=== PATIENT | female | born 1970 | race Caucasian/White ===

== ENCOUNTER 2020-09-19 06:47 | Outpatient (REF) | payer OTHER, SELFPAY | END 2020-09-19 06:48 | disposition home or self-care (01) | LOC: HO.LAB 06:47 | PROVIDERS: Visit Provider Internal Medicine | DX: Z20.828 Contact with and (suspected) exposure to other viral communicable diseases (principal) | CPT/HCPCS: C9803; U0003 ==

== ENCOUNTER 2020-10-04 07:21 | Outpatient (REF) | payer OTHER, SELFPAY | END 2020-10-04 07:22 | disposition home or self-care (01) | LOC: HO.LAB 07:21 | PROVIDERS: PCP Internal Medicine; Visit Provider Internal Medicine | DX: Z20.828 Contact with and (suspected) exposure to other viral communicable diseases (principal) | CPT/HCPCS: C9803; U0003 ==

== ENCOUNTER 2020-10-15 06:47 | Outpatient (REF) | payer OTHER, SELFPAY | END 2020-10-15 06:48 | disposition home or self-care (01) | LOC: HO.LAB 06:47 | PROVIDERS: PCP Nurse Practitioner Family; Visit Provider Internal Medicine | DX: Z20.828 Contact with and (suspected) exposure to other viral communicable diseases (principal) | CPT/HCPCS: C9803; U0003 ==

== ENCOUNTER → 2020-12-25 10:52 | Outpatient (BNVA) | payer OTHER, SELFPAY | PROVIDERS: PCP Nurse Practitioner Family; Visit Provider Obstetrics & Gynecology ==

== ENCOUNTER 2021-01-08 08:49 | Outpatient (REF) | payer OTHER, SELFPAY ==
[2021-01-19 09:23] LABS: HPV 16 RNA NOT DETECTED; HPV mRNA E6/E7 rflx Detected
== END 2021-01-08 08:50 | disposition home or self-care (01) ==
LOC: HO.LAB 08:49
PROVIDERS: PCP Nurse Practitioner Family; Visit Provider Obstetrics & Gynecology
DX: Z01.419 Encounter for gynecological examination (general) (routine) without abnormal findings (principal); B20 Human immunodeficiency virus [HIV] disease; Z79.899 Other long term (current) drug therapy
CPT/HCPCS: 36415; 87624; 87625; 88141; 88142

== ENCOUNTER 2021-01-22 10:24 | Outpatient (REF) | payer OTHER, SELFPAY ==
--- NOTE | ~2021-01-22 | MM_ITS ---
EXAMINATION: MM SCREENING DIGITAL BREAST TOMOSYNTHESIS, BILATERAL CLINICAL INFORMATION: Screening. Asymptomatic. The lifetime risk of breast cancer based on the Tyrer-Cuzick Model is 14.4%. COMPARISON: Mammography: November 01, 2019 and studies dating back to March 19, 2014 TECHNIQUE: Digital breast tomosynthesis is performed in both the craniocaudal and mediolateral oblique views along with computer-aided detection (CAD). Synthesized 2D images are generated from the tomosynthesis. FINDINGS: The breasts are heterogeneously dense, which may obscure small masses (ACR BI-RADS breast composition Category c). There are no significant masses, abnormal calcifications, or other abnormalities. MM/MM tomosynthesis screening BI IMPRESSION: There are no significant changes from prior study. ASSESSMENT: BI-RADS 1: Negative RECOMMENDATION: Routine annual mammography screening. This patient's information was entered into a reminder system with a target due date for their next mammogram.
== END 2021-01-22 10:25 | disposition home or self-care (01) ==
LOC: HO.MAMMO 10:24
PROVIDERS: PCP Nurse Practitioner Family; Visit Provider Nurse Practitioner Family
DX: Z12.31 Encounter for screening mammogram for malignant neoplasm of breast (principal)
CPT/HCPCS: 77063; 77067

== ENCOUNTER 2021-01-28 08:16 | Outpatient (REF) | payer OTHER, SELFPAY | END 2021-01-28 08:17 | disposition home or self-care (01) | LOC: HO.LAB 08:16 | PROVIDERS: PCP Nurse Practitioner Family; Visit Provider Obstetrics & Gynecology | DX: R87.810 Cervical high risk human papillomavirus (HPV) DNA test positive (principal); R87.610 Atypical squamous cells of undetermined significance on cytologic smear of cervix (ASC-US) | CPT/HCPCS: 57454; 88305; 88342; 88360 ==

== ENCOUNTER → 2021-02-18 12:37 | Outpatient (BNVA) | payer OTHER, SELFPAY | PROVIDERS: PCP Nurse Practitioner Family; Visit Provider Obstetrics & Gynecology ==

== ENCOUNTER 2021-02-26 09:42 | Outpatient (REF) | payer OTHER, SELFPAY ==
--- NOTE | ~2021-02-26 | XR_ITS ---
EXAMINATION: XR FINGER, RIGHT CLINICAL INFORMATION: Pain right thumb COMPARISON: Radiographs right hand 01/13/2017, 12/06/2016 TECHNIQUE: AP view right hand and 2 views of the right thumb are obtained. FINDINGS: There is no acute or healing fracture, dislocation, destructive process, or periostitis. There is no gas tracking in the soft tissues. No joint narrowing. A tiny stable cyst versus healed erosion is again noted medial base fourth finger proximal phalanx similar to prior studies 2017. No MCP joint narrowing. The remainder of the hand is unremarkable. XR/XR finger RT min 2V IMPRESSION: Normal finger radiographs.
--- NOTE | ~2021-02-26 | XR_ITS ---
EXAMINATION: XR KNEE, RIGHT CLINICAL INFORMATION: Pain right knee there is COMPARISON: Right knee radiographs 03/29/2017 TECHNIQUE: Four views of the right knee. FINDINGS: There is no acute or healing fracture, dislocation, destructive process. No joint narrowing or erosive change or chondrocalcinosis. No suprapatellar effusion. Hoffa's fat pad appears normal. Normal bony mineralization. XR/XR knee RT 4V IMPRESSION: Normal right knee.
== END 2021-02-26 09:43 | disposition home or self-care (01) ==
LOC: HO.HMGCX 09:42
PROVIDERS: PCP Nurse Practitioner Family; Visit Provider Nurse Practitioner Family
DX: G89.29 Other chronic pain (principal); M79.644 Pain in right finger(s); M25.561 Pain in right knee
CPT/HCPCS: 73140; 73564

== ENCOUNTER 2021-03-10 14:18 | Outpatient (REF) | payer OTHER, SELFPAY ==
[2021-03-10 15:23] LABS: Hematocrit 41.2 % (37-47); Hemoglobin 14.1 g/dl (12.0-16.0); Mean Corpuscular HGB Conc 34.2 g/dl (31.0-35.0); Mean Corpuscular Hemoglobin 32.5 pg (27.0-33.0); Mean Corpuscular Volume 94.9 fL (80-98); Mean Platelet Volume 10.1 fL (9.4-12.3); Platelet Count 192 X10*3/uL (160-400); Red Blood Count 4.34 X10*6/uL (4.20-5.50); Red Cell Distribution Width 12.6 % (11.0-16.0); White Blood Count 4.1 X10*3/uL (4.8-10.8)
[2021-03-10 15:45] LABS: Alanine Aminotransferase 12 U/L (0-31); Aspartate Amino Transferase 15 U/L (5-31); Estimated Glomerular Filt Rate > 60
[2021-03-11 12:11] LABS: HIV RNA PCR Qn Copies 334 copies/mL (NOT DETECTED); HIV RNA PCR Qn Log Copies 2.52 (NOT DETECTED)
[2021-03-11 15:51] LABS: Absolute CD3 Count 1269 cells/uL (840-3060); Absolute CD4 Count 593 cells/uL (490-1740); Absolute CD8 Count 677 cells/uL (180-1170); Absolute Lymphocytes 1528 cells/uL (850-3900); CD4 CD8 Ratio 0.88 (0.86-5.00); Percent CD3 Cells 83 % (57-85); Percent CD4 Cells 39 % (30-61); Percent CD8 Cells 44 % (12-42)
== END 2021-03-10 14:19 | disposition home or self-care (01) ==
LOC: HO.LAB 14:18
PROVIDERS: Absent Provider Internal Medicine Infectious Disease; PCP Nurse Practitioner Family; Visit Provider Obstetrics & Gynecology
DX: B20 Human immunodeficiency virus [HIV] disease (principal)
CPT/HCPCS: 36415; 82565; 84450; 84460; 85027; 86359; 86360; 87536; 99212

== ENCOUNTER 2021-03-13 07:54 | Day surgery (SDC) | payer OTHER, SELFPAY ==
[2021-03-06 13:08] VITALS: BMI 28.2
--- NOTE | 2021-03-11 12:24 | P.CONAN_ITS ---
HPI - Anesthesia Eval Consult details Narrative: 50yo F for Cone LEEP with Post Cone ECC PMFSH Active Problems Active Problems: All Active Problems (Updated 03/10/21 @ 14:36 by Mariusz Tuttle MD) Right knee pain (Acute) Chronic pain of right thumb (Acute) JANA II (cervical intraepithelial neoplasia II) (Acute) Well woman exam (Acute) Past Medical History Medical History History of abnormal cervical Pap smear HIV (human immunodeficiency virus infection) Warts, genital Family History Family History Mother Breast CA Surgical History Surgical History S/P LEEP Social History Social History Are you a primary animal care provider to a significant other at home: No Do you presently have visiting nurse or other home services: No Alcohol intake: never Smoking Status: Never smoker Sexual orientation: Straight/Heterosexual Gender identity: female Meds Allergies Allergy/AdvReac Type Severity Reaction Status Date / Time No Known Allergies Allergy Verified 03/10/21 14:27 Home Medications Medication Instructions Recorded Confirmed Last Taken Type abacavir 600 mg-dolutegravir 50 1 tab PO DAILY 12/25/20 03/06/21 Unknown History mg-lamivudine 300 mg tablet fluticasone propionate 50 1 spray INTRANASAL DAILY 02/26/21 03/06/21 Unknown History mcg/actuation nasal spray,suspension albuterol sulfate 1 - 2 puff INHALATION Q4-6H PRN 03/06/21 03/06/21 Unknown History Exam Exam Date and Time: March 11, 2021 1224 Height,Weight and Vital Signs: Height 5 ft 9 in Weight 86.636 kg Pertinent Lab Results Pertinent Lab Results: Laboratory Tests 03/10/21 15:05 WBC 4.1 L Hgb 14.1 Hct 41.2 Plt Count 192 Assessment and Plan Assessment Anesthesia Assessment: Chart Reviewed
[2021-03-13 08:15] VITALS: BP 129/59; PULSE 66; RESP 16; TEMP 36.4; O2SAT 97
[2021-03-13] MEDS: Lactated Ringers 1,000 ML 100 ML IVCONT (08:29)
--- NOTE | 2021-03-13 08:33 | HO.ANESPROP2 ---
[facility] Active Problems Active Problems: All Active Problems (Updated 03/10/21 @ 14:36 by Mariusz Tuttle MD) Right knee pain (Acute) Chronic pain of right thumb (Acute) JANA II (cervical intraepithelial neoplasia II) (Acute) Well woman exam (Acute) Past Medical History Medical History History of abnormal cervical Pap smear HIV (human immunodeficiency virus infection) Warts, genital Family History Family History Mother Breast CA Surgical History Surgical History S/P LEEP Social History Social History Are you a primary child care coordinator to a significant other at home: No Do you presently have visiting nurse or other home services: No Alcohol intake: never Smoking Status: Never smoker Are you DNR?: No Advance Directives: No Advance Directives Information Provided: No Advance Directives on File: No Recently lost weight without trying: No Eating poorly because of decreased appetite: No Nutrition Risks: No Nutritional Risk Sexual orientation: Straight/Heterosexual Gender identity: female Meds Allergies Allergy/AdvReac Type Severity Reaction Status Date / Time No Known Allergies Allergy Verified 03/10/21 14:27 Active Medications: Current Medications Generic Name Dose Route Start Last Admin Trade Name Freq PRN Reason Stop Dose Admin Lactated Ringer's 1,000 mls @ 100 mls/hr 03/13/21 08:30 03/13/21 08:29 Lr IVCONT 100 mls/hr .Q10H ELICEO Administration Home Medications Medication Instructions Recorded Confirmed Last Taken Type abacavir 600 mg-dolutegravir 50 1 tab PO DAILY 12/25/20 03/06/21 Unknown History mg-lamivudine 300 mg tablet fluticasone propionate 50 1 spray INTRANASAL DAILY 02/26/21 03/06/21 Unknown History mcg/actuation nasal spray,suspension albuterol sulfate 1 - 2 puff INHALATION Q4-6H PRN 03/06/21 03/06/21 Unknown History Exam Exam Date and Time: March 13, 2021 0833 Height,Weight and Vital Signs: Height 5 ft 9 in Weight 86.636 kg Last Vital Signs Temp 97.6 F 03/13/21 08:15 Pulse 66 03/13/21 08:15 Resp 16 03/13/21 08:15 BP 129/59 L 03/13/21 08:15 Pulse Ox 97 03/13/21 08:15 Airway Heart: RRR Lungs: CTA
--- NOTE | 2021-03-13 09:41 | MHC.SHP ---
Pre-Procedural Eval Section A The patient is an INPATIENT: No Changes since office visit: No Cold of Flu in the past 2 weeks, No New Medical Problems, No Changes in Medication and No Patient answered all questions The History & Physical has been completed within 30 days and I have reviewed it.: Yes Section B Chief Complaint: C1N2 Allergies: Allergies Allergy/AdvReac Type Severity Reaction Status Date / Time No Known Allergies Allergy Verified 03/10/21 14:27 Plan Diagnosis/Plan: Unchanged I have reviewed the history and physical and performed a pertinent physical examination on my patient. No changes have occurred unless specified.
--- NOTE | 2021-03-13 09:41 | PM.OP ---
Brief Operative Note Date of Service: 10/03/20 Pre-op diagnosis: JANA 2 on ECC Post-op diagnosis: same Procedure: LEEP CONE with post CONE ECC Surgeon: Mariusz Tuttle MD Anesthesia: local and other (Paracervical block & MA) Was an Human Resources Trainee used for this Procedure?: No Estimated blood loss (mL): 0 Pathology: other (Cervical cone, Endocx, Post cone ECC) Condition: stable Disposition: other (Home)
--- NOTE | 2021-03-13 09:44 | W.PM.OPN ---
Operative Note Operative Note Date of Service: 10/03/20 Narrative: Preop diagnosis: JANA 2 on ECC Operation: LEEP Cone with post cone ECC Post op diagnosis: same, cervic flushed with the vagina l wall Anesthesia: paracervical block with MAC Complications: none Pathology: Cervical cone with endocervix & post cone RCC QBL: minimal Procedure: The patient was put in the dorsal lithotomy position, was prepped and draped in the usual sterile fashion. A sterile speculum was inserted inside the patient vagina. Inspection revealed the cervix is flushed with the vaginal wall. Using Lugol solution the cervix with Dyed with Lugol solution to identifiy the abnormal demarcating line. 10 cc of Marcaine0.5% with epinephrine were given at 2,4 , 8, and 10 o'clock. Using a medium-size loop wire, the cervical cone was excised trying to avoid the vaginal wall bladder and rectum since the cervix is flushed with the vaginal wall, this limited the size of the cone. This was followed by the endocervix, post cone ECC was done afterwards. Hemostasis was assured using cautery and Monsel solution. All instruments were taken out of the patient's vaginal cavity. the patient tolerated the procedure well and was discharged home with the following instructions: call if temperature is above 100.4, vaginal bleeding, abdominal pain or nausea or vomiting. Follow-up in the office in 2 weeks for postop visit
[2021-03-13 09:51] VITALS: BP 116/66; PULSE 79; RESP 16; TEMP 36.2; O2SAT 97
[2021-03-13 09:56] VITALS: BP 119/62; PULSE 77; RESP 18; O2SAT 98
[2021-03-13 10:01] VITALS: BP 129/74; PULSE 72; RESP 16; O2SAT 99
[2021-03-13 10:06] VITALS: BP 121/73; PULSE 70; RESP 18; O2SAT 97
--- NOTE | 2021-03-13 11:09 | HO.POSTANES ---
Post Anesthesia Evaluation Post Anesthesia Evaluation Vital Signs: Vital Signs Temp Pulse Resp BP Pulse Ox 03/13/21 10:06 70 18 121/73 97 03/13/21 10:01 72 16 129/74 99 03/13/21 09:56 77 18 119/62 98 03/13/21 09:51 97.1 F 79 16 116/66 97 03/13/21 08:15 97.6 F 66 16 129/59 L 97 Anesthesia: General Mental Status: Awake Pain Control: Satisfactory Nausea/Vomiting: None Hydration: Adequate Anesthesia-Related Issues: No Anes. Related Issues
== END 2021-03-13 10:37 | disposition home or self-care (01) ==
PROVIDERS: PCP Nurse Practitioner Family; Visit Provider Obstetrics & Gynecology
PROC: 0UBC7ZZ Excision of Cervix, Via Natural or Artificial Opening (ICD-10-PCS; CPT 57522; principal; 2021-03-13 09:50)
DX: N87.1 Moderate cervical dysplasia (principal); B20 Human immunodeficiency virus [HIV] disease; A63.0 Anogenital (venereal) warts; Z79.899 Other long term (current) drug therapy
CPT/HCPCS: 57522; 88305; 88307; 88342; 88360; J0330; J1100; J2250; J2405; J3010

== ENCOUNTER → 2021-03-26 10:39 | Outpatient (BNVA) | payer OTHER, SELFPAY | PROVIDERS: PCP Nurse Practitioner Family; Visit Provider Obstetrics & Gynecology ==

== ENCOUNTER 2021-07-15 07:06 | Outpatient (REF) | payer OTHER, SELFPAY ==
--- NOTE | ~2021-07-15 | XR_ITS ---
EXAMINATION: XR HAND, RIGHT CLINICAL INFORMATION: Pain COMPARISON: Previous x-rays most recent February 2021 TECHNIQUE: PA, lateral, and oblique views of the right hand. FINDINGS: Bone alignment is normal. No fracture or dislocation is seen. There may be a small osteophyte projecting off the dorsal metacarpal head of the thumb and adjacent soft tissue swelling. Joint spaces and soft tissues are otherwise normal. XR/XR hand RT min 3V IMPRESSION: Question small osteophyte arising from the dorsal first metacarpal head and adjacent soft tissue swelling.
== END 2021-07-15 07:07 | disposition home or self-care (01) ==
LOC: HO.HOSX 07:06
PROVIDERS: Visit Provider Physician Assistant
DX: Z01.818 Encounter for other preprocedural examination (principal); M79.641 Pain in right hand; M65.311 Trigger thumb, right thumb
CPT/HCPCS: 73130; 99202

== ENCOUNTER 2021-07-27 11:04 | Day surgery (SDC) | payer OTHER, SELFPAY ==
[2021-07-27 11:15] VITALS: BMI 28.0
--- NOTE | 2021-07-27 11:40 | P.OP_ITS ---
Operative Note Operative Note Date of Service: 07/27/21 Narrative: Operative Note Preop diagnosis: 1. Right trigger thumb Postop diagnosis: Same Procedure: 1. Right thumb A1 juany release Surgeon: Maribeth Lopez MD Anesthesia: local block using 1% lidocaine with epinephrine Findings: No locking or catching after A1 juany release EBL: Less than 5 mL Tourniquet time: None Specimens: None Complications: None Disposition: Brought to recovery room in stable condition Plan: Follow-up for 7-10 days for wound check and suture removal Indications: The patient is 50 years old, with a right thumb trigger finger that has been unresponsive to nonoperative management. The risks and benefits of operative treatment including but not limited to risk of damage to blood vessels, nerves, tendons, infection, persistent pain, persistent symptoms, recurrence or possible need for additional surgery were discussed with the patient and the patient wishes to proceed with surgery. Procedure: Once consent was obtained a local block was performed in the preop area using a combination of 1% lidocaine with epinephrine. The patient was then brought back to the operating suite and placed on the operative table in supine position. A tourniquet was applied to the proximal aspect of the right upper extremity and the limb was prepped and draped in a standard surgical fashion. Once assured that we had a good block, a 1.5 cm oblique incision was made cent ered over the A1 juany of the right thumb . The incision was made through the skin to the subcutaneous tissues using a #15 blade. Careful dissection was made down to the level of the A1 juany using tenotomy scissors, with care being taken to protect the nearby neurovascular structures. A longitudinal incision was made in the A1 juany 1st using a #15 blade, then using tenotomy scissors under direct visualization. The A1 juany was noted to be thickened. Following our A1 juany release, we no longer saw any locking or catching of the digit with flexion and extension. Once satisfied with our A1 juany release the wound was copiously irrigated with normal saline and hemostasis was obtained with a brief period of local pressure. The skin edges were reapproximated with some 5.0 nylon suture material and a sterile dressing was applied. The patient appears to have tolerated the procedure well and with no complications. All digits were well vascularized at the conclusion of the case.
[2021-07-27 11:49] VITALS: BP 120/73; PULSE 66; RESP 16; TEMP 36.3; O2SAT 97
--- NOTE | 2021-07-27 13:27 | MHC.SHP ---
Pre-Procedural Eval Section A Date of Service: 07/27/21 The patient is an INPATIENT: No The History & Physical has been completed within 30 days and I have reviewed it.: Yes Section B Chief Complaint: trigger thumb Allergies: Allergies Allergy/AdvReac Type Severity Reaction Status Date / Time No Known Allergies Allergy Verified 03/26/21 10:40 Plan I have reviewed the history and physical and performed a pertinent physical examination on my patient. No changes have occurred unless specified.
--- NOTE | 2021-07-27 14:03 | MHC.SHP ---
Pre-Procedural Eval Section A Date of Service: 07/27/21 The patient is an INPATIENT: No Changes since office visit: No Cold of Flu in the past 2 weeks, No New Medical Problems, No Changes in Medication and No Patient answered all questions The History & Physical has been completed within 30 days and I have reviewed it.: Yes Section B Chief Complaint: trigger thumb Allergies: Allergies Allergy/AdvReac Type Severity Reaction Status Date / Time No Known Allergies Allergy Verified 03/26/21 10:40 Plan I have reviewed the history and physical and performed a pertinent physical examination on my patient. No changes have occurred unless specified.
[2021-07-27 14:05] VITALS: BP 128/79; PULSE 60; RESP 18; TEMP 36.3; O2SAT 98
== END 2021-07-27 14:09 | disposition home or self-care (01) ==
PROVIDERS: PCP Nurse Practitioner Family; Visit Provider Orthopaedic Surgery
PROC: (CPT 26055; principal; 2021-07-27 13:00)
DX: M65.311 Trigger thumb, right thumb (principal); B20 Human immunodeficiency virus [HIV] disease; Z79.899 Other long term (current) drug therapy
CPT/HCPCS: 26055

== ENCOUNTER → 2021-08-05 13:53 | Outpatient (BNVA) | payer OTHER, SELFPAY | PROVIDERS: Visit Provider Physician Assistant | DX: M65.311 Trigger thumb, right thumb (principal) | CPT/HCPCS: 99212 ==

== ENCOUNTER 2022-02-04 11:23 | Outpatient (REF) | payer OTHER, SELFPAY ==
--- NOTE | ~2022-02-04 | MM_ITS ---
EXAMINATION: MM SCREENING DIGITAL BREAST TOMOSYNTHESIS, BILATERAL CLINICAL INFORMATION: Screening. Asymptomatic. The lifetime risk of breast cancer based on the Tyrer-Cuzick Model is 14%. COMPARISON: Mammography: 01/22/2021, 11/01/2019, 08/03/2018, outside exam 03/21/2015 ([place]) TECHNIQUE: Digital breast tomosynthesis is performed in both the craniocaudal and mediolateral oblique views along with computer-aided detection (CAD). Synthesized 2D images are generated from the tomosynthesis. FINDINGS: There are scattered areas of fibroglandular density (ACR BI-RADS breast composition Category b). There are no significant masses, abnormal calcifications, or other abnormalities. Parenchymal pattern is similar to prior studies. Breast tissue composition borders on heterogeneously dense. There is no developing density or architectural abnormality. There is a stable intramammary node anterior upper outer left breast. Low right axillary tail nodes on right MLO view. No significant changes from prior exams. MM/MM tomosynthesis screening BI IMPRESSION: No mammographic evidence of malignancy. ASSESSMENT: BI-RADS 2: Benign RECOMMENDATION: Routine annual mammography screening. This patient's information was entered into a reminder system with a target due date for their next mammogram.
== END 2022-02-04 11:24 | disposition home or self-care (01) ==
LOC: HO.MAMMO 11:23
PROVIDERS: Visit Provider Nurse Practitioner Family
DX: Z12.31 Encounter for screening mammogram for malignant neoplasm of breast (principal)
CPT/HCPCS: 77063; 77067

== ENCOUNTER 2022-03-31 14:57 | Outpatient (REF) | payer OTHER, SELFPAY ==
[2022-04-12 11:02] LABS: HPV 16 RNA NOT DETECTED (NOT DETECTED); HPV mRNA E6/E7 rflx Detected (Not Detected)
== END 2022-03-31 14:58 | disposition home or self-care (01) ==
LOC: HO.LAB 14:57
PROVIDERS: Visit Provider Obstetrics & Gynecology
DX: Z01.419 Encounter for gynecological examination (general) (routine) without abnormal findings (principal)
CPT/HCPCS: 87624; 87625; 88142

== ENCOUNTER 2022-06-23 | Outpatient (REF) | payer OTHER, SELFPAY | END 2022-06-23 00:01 | disposition home or self-care (01) | LOC: HO.LAB | PROVIDERS: PCP Nurse Practitioner Family; Visit Provider Obstetrics & Gynecology | DX: R87.612 Low grade squamous intraepithelial lesion on cytologic smear of cervix (LGSIL) (principal) | CPT/HCPCS: 57454; 88305 ==

== ENCOUNTER → 2022-07-15 10:11 | Outpatient (BNVA) | payer OTHER, SELFPAY | PROVIDERS: PCP Nurse Practitioner Family; Visit Provider Obstetrics & Gynecology | DX: N87.0 Mild cervical dysplasia (principal) | CPT/HCPCS: 99212 ==

== ENCOUNTER 2022-11-22 11:49 | Outpatient (REF) | payer OTHER, SELFPAY ==
[2022-11-22 14:03] LABS: Appearance Urine Clear; Color Urine Yellow; Glucose Urine UA Negative (Negative); Leukocyte Esterase Urine Negative (Negative); Nitrite Urine Negative (Negative); PH 6.5 (5.0-9.0); Urine Blood Negative (Negative); Urine Ketones Negative (Negative); Urine Protein Negative (Neg-Trace)
[2022-11-22 14:49] LABS: Alanine Aminotransferase 9 U/L (0-31); Albumin Level 4.2 g/dL (3.5-5.0); Alkaline Phosphatase 76 U/L (39-117); Anion Gap 12 (12-20); Aspartate Amino Transferase 12 U/L (5-31); Bilirubin Total 0.5 mg/dL (0.0-1.0); Blood Urea Nitrogen 11 mg/dL (9-16); Calcium 8.9 mg/dL (8.4-10.2); Carbon Dioxide 23 mmol/L (22-29); Chloride 109 mmol/L (96-108); Cholesterol 235 mg/dL; Estimated Glomerular Filt Rate > 60; Glucose Fasting 95 mg/dL (60-99); HDL Cholesterol 66 mg/dL; LDL Cholesterol Calculated 156 mg/dl; Potassium 4.4 mmol/L (3.3-5.1); Sodium 140 mmol/L (135-145); Total Protein 6.4 g/dL (6.5-8.0); Triglycerides 69 mg/dL
[2022-11-22 14:52] LABS: TSH reflex Free T4 0.56 uIU/mL (0.32-4.0)
== END 2022-11-22 11:50 | disposition home or self-care (01) ==
LOC: HO.HMGCLDS 11:49
PROVIDERS: Visit Provider Nurse Practitioner Family
DX: Z00.00 Encounter for general adult medical examination without abnormal findings (principal)
CPT/HCPCS: 36415; 80053; 80061; 81003; 84443

== ENCOUNTER 2022-12-31 17:54 | Emergency (ER) | payer OTHER, SELFPAY ==
--- NOTE | ~2022-12-31 | XR_ITS ---
EXAMINATION: XR HAND, LEFT CLINICAL INFORMATION: Trauma. COMPARISON: Radiograph of the right hand 07/15/2021. TECHNIQUE: PA, lateral, and oblique views of the left hand. FINDINGS: No acute fractures or malalignment. No unexpected radiopaque foreign bodies. 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 No erosions or chondrocalcinosis. XR/XR hand LT 2V IMPRESSION: No acute fractures or malalignment. 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
[2022-12-31 18:33] VITALS: BP 138/93; PULSE 98; RESP 18; TEMP 36.6; O2SAT 98; BMI 26.6
--- NOTE | 2022-12-31 19:16 | ED_ITS ---
HPI - General Adult General Chief complaint: Wound/Laceration Stated complaint: finger lac Time Seen by Provider: 12/31/22 19:15 Source: patient Mode of arrival: ambulatory Limitations: no limitations History of Present Illness HPI narrative: Patient is a 52 year old assigned female at with no reported medical history presenting to the emergency department today with a laceration between her left index and middle fingers. Patient states that she was going through a box when a broken picture frame cut her in between her left index and left middle fingers. Patient denies any dizziness, lightheadedness, abdominal pain, nausea, vomiting, fever, chills, blurry vision, double vision, loss of vision, chest pain, difficulty breathing, shortness of breath, back pain, night sweats, pain with urination, increased urinary frequency, increased urinary urgency, blood in her urine or stool, syncope or a near syncopal episode, bowel incontinence, bladder incontinence, bowel retention, bladder retention, or any other complaints at this time. Patient's tetanus is up to date. Onset (ago): minute(s) Location: left and upper extremity Radiation: non-radiation Severity: mild Severity scale (1-10): 3 Relieving factors: none Exacerbating factors: none Associated symptoms: denies other symptoms Treatments prior to arrival: none Related Data Home Medications Medication Instructions Recorded Confirmed abacavir 600 mg-dolutegravir 50 1 tab PO DAILY 12/25/20 05/04/22 mg-lamivudine 300 mg tablet (Triumeq) Previous Rx's Medication Instructions Recorded loratadine 10 mg tablet 10 mg PO DAILY 90 days #90 tabs 08/20/21 albuterol sulfate 90 mcg/actuation 1 - 2 puff inhalation Q4-6H PRN 12/22/21 aerosol inhaler asthma #8.5 grams bisacodyl 5 mg tablet,delayed 10 mg PO ONCE colonoscopy prep 1 05/04/22 release (Dulcolax (bisacodyl)) day #2 tabs polyethylene glycol 3350 17 238 g PO ONCE 1 day #238 grams 05/04/22 gram/dose oral powder (Miralax) cyclobenzaprine 10 mg tablet 10 mg PO BEDTIME #14 tabs 07/12/22 meloxicam 15 mg tablet 15 mg PO DAILY #14 tabs 07/12/22 fluticasone propionate 50 1 spray intranasal DAILY 30 days 09/20/22 mcg/actuation nasal #16 grams spray,suspension cephalexin 500 mg capsule 500 mg PO BID 7 days #14 caps 12/22/22 amoxicillin 875 mg-potassium 1 tab PO BID 7 days #14 tabs 12/31/22 clavulanate 125 mg tablet Allergies Allergy/AdvReac Type Severity Reaction Status Date / Time No Known Allergies Allergy Verified 12/22/22 10:35 Review of Systems Constitutional: Constitutional: Reports no additional constitutional complaints, Denies chills, Denies fever(s) and Denies night sweats Eyes: Eyes: Reports no additional eye complaints, Denies blurry vision, Denies change in vision, Denies diplopia, Denies eye discharge, Denies loss of vision and Denies eye pain ENT: Denies dizziness Cardiovascular: Cardiovascular: Reports no additional cardiovascular complaints, Denies chest pain, Denies lightheadedness, Denies Loss of Consciousness and Denies dyspnea Respiratory: Respiratory: Reports no additional respiratory complaints and Denies dyspnea Gastrointestinal: Gastrointestinal: Reports no additional gastrointestinal complaints, Denies abdominal pain, Denies melena, Denies hematochezia, Denies change in bowel habits and Denies change in stool character Genitourinary: Genitourinary: Denies hematuria, Denies urinary frequency, Denies dysuria, Denies urinary incontinence, Denies urinary hesitancy and Denies urinary urgency Musculoskeletal: Musculoskeletal: Reports no additional musculoskeletal complaints, Denies numbness and Denies tingling Comments: laceration between left index and left middle fingers Neurologic: Denies dizziness, Denies loss of vision, Denies numbness and Denies tingling Psychiatric: Psychiatric: Reports no additional psychiatric complaints Endocrine: Endocrine: Reports no additional endocrine complaints Hematologic/Lymphatic: Hematologic/Lymphatic: Reports no additional hematologic/lymphatic complaints Allergic/Immunologic: Allergic/Immunologic: Reports no additional allergic/immunologic complaints PMFSH Past Medical History Attestation statement: The following information was validated with the patient. Source: old records reviewed and nursing notes reviewed Medical History History of abnormal cervical Pap smear HIV (human immunodeficiency virus infection) Warts, genital Surgical History S/P LEEP Family History Family History Mother Breast CA Son Mental health disorder Social History Social History Housing: Condominium Are you a primary healthcare financial analyst to a significant other at home: No Do you presently have visiting nurse or other home services: No Alcohol intake: never Patient Tobacco Use Status: Former Tobacco user Quit Date: quit last week Tobacco use type: Cigarette e-Cigarette/Vaping Use: Never Used Second Hand Smoke Exposure: No Advance Directives: No Advance Directives Information Provided: No Current occupational status: employed Current occupation: rt handed Sexual orientation: Straight/Heterosexual Gender identity: Female Cognitive needs: No Hearing needs: No Vision needs: No Physical Exam ED Vital Signs: Vital Signs - 24 hr 12/31/22 18:33 Temperature 98 F Pulse Rate 98 Respiratory Rate 18 Blood Pressure 138/93 H Pulse Oximetry 98 Oxygen Delivery Method Room Air BMI result Body Mass Index 26.6 Const General: cooperative, no acute distress, alert and awake Nutritional Appearance: well nourished Orientation/consciousness: patient oriented x3 Limitations: no limitations HENMT Head: Yes normal to inspection and Yes atraumatic Ears: hearing grossly normal bilaterally and external ears normal General nose exam: Normal external nose present, no nasal discharge noted and no epistaxis Face and sinus: Yes normal facial exam, No abrasion and No laceration Mouth: Normal oral and palatal mucosa present, no drooling and no muffled voice Eyes General: appearance normal, both eyes and all related structures Periorbital: periorbital findings normal Eyelids: Yes eyelids normal Conjunctivae: conjunctivae normal Pupils: Equal, round and reactive pupils present EOM: EOMs intact bilaterally Neck Neck: Yes normal visual inspection, Yes full ROM and Yes no lymphadenopathy Chest Chest palpation & inspection: normal inspection of the chest Resp Effort & Inspection: normal respiratory effort and able to speak in complete sentences Auscultation: clear to auscultation bilaterally Cardio Rate: regular rate Rhythm: regular rhythm GI Inspection: Yes normal to inspection Palpation (GI): Soft to palpation, not firm, nontender, no guarding and not rigid Skin Other: 2cm laceration present in the web space between the left index finger and left middle finger Neuro General: patient oriented x3 and moves all extremities Cranial nerves: Yes Equal, round and reactive pupils present Cognition (Neuro): normal cognition Motor exam (neuro): 5/5 motor strength present throughout Sensory Exam: Normal double simultaneous stimulation for sensation Coordination: [id number] test normal Extrem General: Yes normal to inspection, Yes full ROM and Yes capillary refill normal Psych Appearance: grossly normal Mental Status: mental status grossly normal Affect: normal affect Attitude: cooperative Thought process: Normal thought process present Thought content: Normal thought content present Insight: Good insight present (Psych) Medications Administered Discontinued Medications Generic Name Dose Route Start Last Admin Trade Name Sofie PRN Reason Stop Dose Admin Lidocaine HCl 10 ml 12/31/22 19:41 12/31/22 20:53 Lidocaine Hcl 1 % Mpf 5 Ml Vial SUBCUT 12/31/22 19:42 10 ml ONCE ONE Administration Procedures Laceration Laceration 1: Site: hand Side (If applicable): left Size (cm): 2 Description: flap Depth: simple, single layer Local Anesthetic: lidocaine 1% Amount of anesthesia used (mL): 5 Pre-repair: wound explored, irrigated extensively and deep structures intact Skin layer closed with: other (prolene) Size (cm): 4-0 Number of sutures: 1 Technique: simple, interrupted Medical Decision Making Medical Decision Making MDM Narrative: Patient is a 52 year old assigned female at with no reported medical history presenting to the emergency department today with a laceration to her left hand. Patient's physical exam showed a 2cm flap like laceration between the left index finger and the left middle finger. Patient's left hand x-ray showed no acute process. I explained my physical exam findings as well as all test results to the patient. I answered all questions asked by the patient. Patient's hand was soaked with sterile water and iodine then repaired, per procedure note, without incident. Patient's PMS was in tact prior to and after the procedure. I stressed the importance of the patient taking her medication as prescribed. I stressed the importance of the patient following up with her primary care provider. I stressed the importance of the patient performing daily wound checks and dressing changes. I stressed the importance of the patient having her suture removed in 7-10 days. I stressed the importance of the patient NOT getting the repaired area wet for at least 7 days. I stressed the importance of the patient returning to the emergency department immediately if her symptoms were to worsen or if she were to develop any dizziness, shortness of breath, difficulty breathing, chest pain, blurry vision, loss of vision, nausea, vomiting, abdominal pain, fever, chills, back pain, or any other complaints. Patient verbalized agreement and understanding with this treatment plan and discharge. Differential Diagnosis Differential Diagnoses: The differential diagnosis associated with the presentation includes laceration Independent Interpretation I performed an independent interpretation of an: Plain X-Ray Interpretation: My interpretation is in agreement with the radiologist's impression of this imaging study. - EXAMINATION: XR HAND, LEFT CLINICAL INFORMATION: Trauma.? COMPARISON: Radiograph of the right hand 07/15/2021.? TECHNIQUE: PA, lateral, and oblique views of the left hand. FINDINGS: No acute fractures or malalignment. No unexpected radiopaque foreign bodies. 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 No erosions or chondrocalcinosis.? XR/XR hand LT 2V IMPRESSION: No acute fractures or malalignment. 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 Dictated By: Oma Baca Signed By: Electronically signed by Oma?Keven 12/31/221940 Discharge Plan Discharge Clinical Impression: Laceration of hand Patient Disposition: Home, Self-Care Instructions: Care For Your Stitches (ED), Laceration (ED), Skin Adhesive Care (ED) Additional Instructions: Do NOT get the repaired area wet for 7 days. Have your suture removed in 7-10 days. Follow up with your primary care provider. Return to the emergency depart ment immediately if your symptoms worsen or if you develop any dizziness, shortness of breath, difficulty breathing, chest pain, blurry vision, loss of vision, nausea, vomiting, abdominal pain, fever, chills, back pain, or any other complaints. Prescriptions: New amoxicillin-pot clavulanate 875-125 mg tablet 1 tab PO BID 7 Days Qty: 14 0RF No Action loratadine 10 mg tablet 10 mg PO DAILY 90 Days Qty: 90 0RF fluticasone propionate 50 mcg/actuation spray,suspension 1 spray intranasal DAILY 30 Days Qty: 16 0RF albuterol sulfate 90 mcg/actuation HFA aerosol inhaler 1 - 2 puff inhalation Q4-6H PRN (Reason: asthma) Qty: 8.5 0RF cyclobenzaprine 10 mg tablet 10 mg PO BEDTIME Qty: 14 0RF meloxicam 15 mg tablet 15 mg PO DAILY Qty: 14 0RF cephalexin 500 mg capsule 500 mg PO BID 7 Days Qty: 14 0RF Triumeq 600-50-300 mg tablet 1 tab PO DAILY bisacodyl [Dulcolax (bisacodyl)] 5 mg tablet,delayed release (DR/EC) 10 mg PO ONCE 1 Days Qty: 2 0RF Rx Instructions: Take 2 tablets by mouth at 12:00pm the day before your procedure. polyethylene glycol 3350 [Miralax] 17 gram/dose powder 238 g PO ONCE 1 Days Qty: 238 0RF Rx Instructions: Take as directed by mouth the day before your procedure. Referrals: Thad Bills, [facility] [Primary Care Provider] - Stand Alone Forms: Work/School Release Interventions: ED Discharge Assessment Last Done: 12/31/22 20:57 Discharge Date/Time: 12/31/22 20:58 Print Language: Cypriot
[2022-12-31] MEDS: Lidocaine HCl 1 % MPF 5 ML VIAL 10 ML SUBCUT (20:53)
== END 2022-12-31 20:58 | disposition home or self-care (01) ==
PROVIDERS: Emergency Provider Internal Medicine; PCP Nurse Practitioner Family
DX: S61.211A Laceration without foreign body of left index finger without damage to nail, initial encounter (principal); S61.213A Laceration without foreign body of left middle finger without damage to nail, initial encounter; W25.XXXA Contact with sharp glass, initial encounter; Y93.89 Activity, other specified; Y92.9 Unspecified place or not applicable
CPT/HCPCS: 12001; 73120; 99282; 99284

== ENCOUNTER 2023-01-02 09:22 | Emergency (ER) | payer OTHER, SELFPAY ==
[2023-01-02 09:26] VITALS: BP 107/87; PULSE 73; RESP 16; TEMP 36.5; O2SAT 97; BMI 26.6
[2023-01-02 10:00] VITALS: RESP 16
--- NOTE | 2023-01-02 10:19 | MHC.EDTECH ---
Visual acuity test completed, pt has contacts/glass but not with her at the time of completion
[2023-01-02] MEDS: Fluorescein Sodium STRIP 1 STRIP EYE-LEFT (10:22)
[2023-01-02] MEDS: Tetracaine HCl/PF 0.5% Oph Sol 4 ML DROPS 1 DROP EYE-LEFT (10:23)
--- NOTE | 2023-01-02 10:59 | ED.EYEPROB ---
HPI - Eye Problem General Chief complaint: Eye Problems Stated complaint: Vision loss L eye Time Seen by Provider: 01/02/23 09:43 Source: patient Mode of arrival: ambulatory History of Present Illness HPI Narrative: 52-year-old female with a past medical history of HIV, presenting to the ED complaining of left eye pain, erythema, and tearing since yesterday. States at baseline wears glass contacts & believes something got caught under her contact and scratched eye. Reports blurry vision. Denies injury, trauma, known foreign body, vision loss, nausea/vomiting. Denies drink glasses. chief complaint: eye pain and eye redness Onset (ago): day(s) Related Data Home Medications Medication Instructions Recorded Confirmed abacavir 600 mg-dolutegravir 50 1 tab PO DAILY 12/25/20 05/04/22 mg-lamivudine 300 mg tablet (Triumeq) Previous Rx's Medication Instructions Recorded loratadine 10 mg tablet 10 mg PO DAILY 90 days #90 tabs 08/20/21 albuterol sulfate 90 mcg/actuation 1 - 2 puff inhalation Q4-6H PRN 12/22/21 aerosol inhaler asthma #8.5 grams bisacodyl 5 mg tablet,delayed 10 mg PO ONCE colonoscopy prep 1 05/04/22 release (Dulcolax (bisacodyl)) day #2 tabs polyethylene glycol 3350 17 238 g PO ONCE 1 day #238 grams 05/04/22 gram/dose oral powder (Miralax) cyclobenzaprine 10 mg tablet 10 mg PO BEDTIME #14 tabs 07/12/22 meloxicam 15 mg tablet 15 mg PO DAILY #14 tabs 07/12/22 fluticasone propionate 50 1 spray intranasal DAILY 30 days 09/20/22 mcg/actuation nasal #16 grams spray,suspension cephalexin 500 mg capsule 500 mg PO BID 7 days #14 caps 12/22/22 amoxicillin 875 mg-potassium 1 tab PO BID 7 days #14 tabs 12/31/22 clavulanate 125 mg tablet ofloxacin 0.3 % eye drops 2 drp ophthalmic (eye) QID 7 days 01/02/23 #5 mL Allergies Allergy/AdvReac Type Severity Reaction Status Date / Time No Known Allergies Allergy Verified 01/02/23 09:29 Review of Systems Review of Systems: Constitutional: No Weight loss, No Fever, No Fatigue, No Malaise ENT/Mouth: No Ear Pain, No Nasal Congestion, No Sinus Pain, No sore throat, No Rhinorrhea, No Swallowing Difficulty Eyes: + Eye Pain, No Swelling, + Redness, No Foreign Body, + Discharge, +Vision Changes Cardiovascular: No Chest Pain, No SOB, No Edema, No Palpitations Respiratory: No Cough, No Sputum, No Dyspnea Gastrointestinal: No Nausea, No Vomiting, No Diarrhea, No Constipation, No Abdominal pain Genitourinary: No Dysuria, No Urinary Frequency, No Hematuria Musculoskeletal: No joint pain, No Myalgias, No Joint Swelling Skin: No Skin Lesions, No rash Neuro: No Weakness, No Headache Yes all other systems are reviewed and are negative Constitutional: Constitutional: Reports as per HPI Eyes: Eyes: Reports photophobia PMFSH Past Medical History Attestation statement: The following information was validated with the patient. Medical History History of abnormal cervical Pap smear HIV (human immunodeficiency virus infection) Warts, genital Surgical History S/P LEEP Family History Family History Mother Breast CA Son Mental health disorder Social History Social History Housing: Condominium Are you a primary career and technology education teacher to a significant other at home: No Do you presently have visiting nurse or other home services: No Alcohol intake: unknown Patient Tobacco Use Status: Former Tobacco user Quit Date: quit last week Tobacco use type: Cigarette Smoked in Last 30 Days: No e-Cigarette/Vaping Use: Never Used Second Hand Smoke Exposure: No Use of substances other than those prescribed or required for medical reasons: Unknown Advance Directives: No Advance Directives Information Provided: No Patient : No Current occupational status: employed Current occupation: rt handed Sexual orientation: Straight/Heterosexual Gender identity: Female Cognitive needs: No Hearing needs: No Vision needs: No Physical Exam Vital Signs: Vital Signs: Last Vital Signs Temp 97.7 F 01/02/23 09:26 Pulse 73 01/02/23 09:26 Resp 16 01/02/23 10:00 BP 107/87 01/02/23 09:26 Pulse Ox 97 01/02/23 09:26 O2 Del Method 01/02/23 09:26 BMI result Body Mass Index 26.6 Const: General: cooperative, healthy appearing, comfortable and no acute distress Orientation/consciousness: patient oriented x3 Limitations: no limitations HEENT: Head: Yes normal to inspection and Yes atraumatic Ears: hearing grossly normal bilaterally General nose exam: Normal external nose present Face and sinus: Yes normal facial exam Eyes: General: appearance normal, both eyes and all related structures Visual May: normal visual may by confrontation Periorbital: periorbital findings normal Eyelids: Yes eyelids normal Conjunctivae: conjunctival abnormal left conjunctival injection diffuse and discharge (clear); without subconjunctival hemmorhages Corneas: corneas abnormal on the left fluorescein used and abrasion central; with no foreign body noted and without ulcerations and fluorescein used Pupils: Equal, round and reactive pupils present EOM: EOMs intact bilaterally and no movement deficit Direct Ophthalmoscopy: normal light reflex and photophobia Neck: Neck: Yes normal visual inspection and Yes no meningeal signs Resp: Effort & Inspection: normal respiratory effort and no respiratory distress Cardio: Rate: regular rate Skin: Rashes: no rashes Wounds: no wounds Neuro: General: patient oriented x3, tone normal and no meningeal signs Cranial nerves: Yes Equal, round and reactive pupils present Gait exam (Neuro): Normal gait present Extrem: General: Yes normal to inspection Course Course Course Narrative: Results discussed with patient including worrisome signs and symptoms and strict return precautions, and when to return to the emergency department. They verbalized understanding and feel safe for discharge at this time. Medications Administered Discontinued Medications Generic Name Dose Route Start Last Admin Trade Name Sofie PRN Reason Stop Dose Admin Fluorescein Sodium 1 strip 01/02/23 10:14 01/02/23 10:22 Fluorescein Sodium Strip EYE-LEFT 01/02/23 10:15 1 strip ONCE ONE Administration Tetracaine HCl 1 drop 01/02/23 10:14 01/02/23 10:23 Tetracaine Hcl/Pf 0.5% Oph Amparo 4 Ml Drops EYE-LEFT 01/02/23 10:15 1 drop ONCE ONE Administration Medical Decision Making Medical Decision Making MDM Narrative: 52-year-old female with a past medical history of HIV, presenting to the ED complaining of left eye pain, erythema, and tearing since yesterday. On exam vital signs stable, NAD, nontoxic appearing, corneal abrasion noted to Central eye with diffuse conjunctival injection. No evidence of ulceration or foreign body. You is intact without pain. No evidence of trauma. Low suspicion for globe rupture Plan: Fluorescein staining, visual acuity, Abx drops, optho f/u Please refer to course for remaining clinical decision making, interpretation of labs/imaging results, and discussions with consultants and/or family members. Differential Diagnosis Differential Diagnoses: The differential diagnosis associated with the presentation includes As above Admission/Observation Consideration of admission/observation: Escalation of care including admission/observation considered Lab Data MDM Lab Attestation statement: I reviewed the patient's lab results. Radiology Impression Discussion of test interpretation with radiology: I have reviewed the radiologist's reading. External Record Review External record reviewed: Inpatient record, Office record, Outpatient record, Prior outpatient labs, Prior outpatient radiology, Primary care record and Outside ED record Discharge Plan Discharge Clinical Impression: Corneal abrasion Patient Disposition: Home, Self-Care Instructions: Corneal Abrasion (ED) Additional Instructions: You have a scratch on your eye. Ofloxacin ointment is a topical antibiotic ointment please apply as prescribed Avoid putting her contacts in for the next week You need to follow-up with Ophthalmology, call tomorrow to make an appointment If he develops vision loss, persistent worsening pain return to the ED Prescriptions: New ofloxacin 0.3 % drops 2 drp ophthalmic (eye) QID 7 Days Qty: 5 0RF No Action loratadine 10 mg tablet 10 mg PO DAILY 90 Days Qty: 90 0RF fluticasone propionate 50 mcg/actuation spray,suspension 1 spray intranasal DAILY 30 Days Qty: 16 0RF amoxicillin-pot clavulanate 875-125 mg tablet 1 tab PO BID 7 Days Qty: 14 0RF albuterol sulfate 90 mcg/actuation HFA aerosol inhaler 1 - 2 puff inhalation Q4-6H PRN (Reason: asthma) Qty: 8.5 0RF cyclobenzaprine 10 mg tablet 10 mg PO BEDTIME Qty: 14 0RF meloxicam 15 mg tablet 15 mg PO DAILY Qty: 14 0RF cephalexin 500 mg capsule 500 mg PO BID 7 Days Qty: 14 0RF Triumeq 600-50-300 mg tablet 1 tab PO DAILY bisacodyl [Dulcolax (bisacodyl)] 5 mg tablet,delayed release (DR/EC) 10 mg PO ONCE 1 Days Qty: 2 0RF Rx Instructions: Take 2 tablets by mouth at 12:00pm the day before your procedure. polyethylene glycol 3350 [Miralax] 17 gram/dose powder 238 g PO ONCE 1 Days Qty: 238 0RF Rx Instructions: Take as directed by mouth the day before your procedure. Referrals: Mark Pulliam [Physician] - 2 days Stand Alone Forms: Work/School Release
== END 2023-01-02 11:40 | disposition home or self-care (01) ==
PROVIDERS: Emergency Provider Student in an Organized Health Care Education/Training Program; PCP Nurse Practitioner Family
DX: S05.02XA Injury of conjunctiva and corneal abrasion without foreign body, left eye, initial encounter (principal); X58.XXXA Exposure to other specified factors, initial encounter; Y93.9 Activity, unspecified; Y92.9 Unspecified place or not applicable; Y99.9 Unspecified external cause status; Z87.891 Personal history of nicotine dependence; Z79.899 Other long term (current) drug therapy
CPT/HCPCS: 99283; 99284

== ENCOUNTER 2023-04-07 10:04 | Outpatient (REF) | payer OTHER, SELFPAY ==
[2023-04-12 22:13] LABS: HPV mRNA E6/E7 rflx Not Detected (Not Detected)
== END 2023-04-07 10:05 | disposition home or self-care (01) ==
LOC: HO.LNP 10:04
PROVIDERS: PCP Nurse Practitioner Family; Visit Provider Obstetrics & Gynecology
DX: Z01.419 Encounter for gynecological examination (general) (routine) without abnormal findings (principal); Z11.51 Encounter for screening for human papillomavirus (HPV)
CPT/HCPCS: 87624; 88142

== ENCOUNTER 2023-04-28 09:02 | Outpatient (REF) | payer OTHER, SELFPAY ==
--- NOTE | ~2023-04-28 | MM_ITS ---
EXAMINATION: MM SCREENING DIGITAL BREAST TOMOSYNTHESIS, BILATERAL CLINICAL INFORMATION: Screening. Asymptomatic. The lifetime risk of breast cancer based on the Tyrer-Cuzick Model is 11.1%. COMPARISON: Mammography: This study is compared with prior exams dating back to 2018. TECHNIQUE: Digital breast tomosynthesis is performed in both the craniocaudal and mediolateral oblique views along with computer-aided detection (CAD). Synthesized 2D images are generated from the tomosynthesis. FINDINGS: There are scattered areas of fibroglandular density (ACR BI-RADS breast composition Category b). There are no significant masses, abnormal calcifications, or other abnormalities. MM/MM tomosynthesis screening BI IMPRESSION: No mammographic evidence of malignancy. ASSESSMENT: BI-RADS BI-RADS 1 - Negative RECOMMENDATION: Routine annual mammography screening. 1 year F/U This examination should not preclude the clinical evaluation of a suspicious palpable abnormality. This patient's information was entered into a reminder system with a target due date for their next mammogram.
== END 2023-04-28 09:03 | disposition home or self-care (01) ==
LOC: HO.MAMMO 09:02
PROVIDERS: PCP Nurse Practitioner Family; Visit Provider Nurse Practitioner Family
DX: Z12.31 Encounter for screening mammogram for malignant neoplasm of breast (principal)
CPT/HCPCS: 77063; 77067

== ENCOUNTER → 2023-04-28 09:15 | Outpatient (BNV) | payer OTHER, SELFPAY | PROVIDERS: PCP Nurse Practitioner Family; Visit Provider Radiology Diagnostic Radiology | DX: Z12.31 Encounter for screening mammogram for malignant neoplasm of breast (principal) | CPT/HCPCS: 77063; 77067 ==

== ENCOUNTER 2023-06-30 13:57 | Outpatient (AMB) | payer OTHER, SELFPAY ==
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
[2023-06-30 14:31] VITALS: BP 120/70; PULSE 72; O2SAT 99; BMI 25.2
== END 2023-06-30 15:26 | disposition home or self-care (01) ==
PROVIDERS: PCP Nurse Practitioner Family; Visit Provider Physician Assistant
DX: M54.50 Low back pain, unspecified (principal)
CPT/HCPCS: 99213

== ENCOUNTER 2023-07-25 09:36 | Emergency (ER) | payer OTHER, SELFPAY ==
--- NOTE | ~2023-07-25 | XR_ITS ---
EXAMINATION: Thoracic spine and lumbar spine 2-3 views. CLINICAL INDICATIONS: Back pain. COMPARISON: None. TECHNIQUE: Thoracic spine 2 views and lumbar spine 3 views. FINDINGS: DORSAL SPINE: There is normal thoracic kyphosis. The vertebral heights, alignment and disc heights are normal. No visible acute fracture, dislocation or subluxation seen. LUMBAR SPINE: There is normal lumbar lordosis with minimal dextroscoliosis. The vertebral heights and alignment is normal. There is minimal loss of L2-L3 disc height is seen. There is mild ventral spondylosis in mid lumbar spine. No acute fracture, dislocation or lytic process seen. SI joints are symmetrical and normal. Visualized sacrum is normal. Prevertebral and paravertebral soft tissues are normal. XR/XR lumbar spine 2-3V IMPRESSION: 1. Unremarkable thoracic spine exam. 2. Mild dextroscoliosis lumbar spine. No visible acute fracture, dislocation or lytic process seen. There is mild ventral spondylosis mid lumbar spine.
--- NOTE | ~2023-07-25 | US_ITS ---
EXAMINATION: US RETROPERITONEAL LIMITED (RENAL ONLY) CLINICAL INFORMATION: Left kidney pain. COMPARISON: CT scan abdomen and pelvis 02/11/2013 TECHNIQUE: Real-time ultrasound of the kidneys FINDINGS: RIGHT KIDNEY: 11.3 x 3.8 x 5.7 cm (SAG x AP x TRV). The kidney is normal in size, contour, and echogenicity. Renal cortical thickness is normal. No calculi or focal parenchymal lesions. No hydronephrosis. LEFT KIDNEY: 10.7 x 6.1 x 4.2 cm (SAG x AP x TRV). The kidney is normal in size, contour, and echogenicity. Renal cortical thickness is normal. No calculi or focal parenchymal lesions. No hydronephrosis. US/US renal BI IMPRESSION: Normal renal ultrasound.
--- NOTE | ~2023-07-25 | XR_ITS ---
EXAMINATION: Thoracic spine and lumbar spine 2-3 views. CLINICAL INDICATIONS: Back pain. COMPARISON: None. TECHNIQUE: Thoracic spine 2 views and lumbar spine 3 views. FINDINGS: DORSAL SPINE: There is normal thoracic kyphosis. The vertebral heights, alignment and disc heights are normal. No visible acute fracture, dislocation or subluxation seen. LUMBAR SPINE: There is normal lumbar lordosis with minimal dextroscoliosis. The vertebral heights and alignment is normal. There is minimal loss of L2-L3 disc height is seen. There is mild ventral spondylosis in mid lumbar spine. No acute fracture, dislocation or lytic process seen. SI joints are symmetrical and normal. Visualized sacrum is normal. Prevertebral and paravertebral soft tissues are normal. XR/XR thoracic spine 3V IMPRESSION: 1. Unremarkable thoracic spine exam. 2. Mild dextroscoliosis lumbar spine. No visible acute fracture, dislocation or lytic process seen. There is mild ventral spondylosis mid lumbar spine.
[2023-07-25 10:19] VITALS: BP 114/95; PULSE 70; RESP 16; TEMP 36.1; O2SAT 100; BMI 25.8
[2023-07-25 10:50] LABS: MANUAL DIFF FLAG NO
[2023-07-25 10:52] LABS: Appearance Urine Clear; Color Urine Yellow; Glucose Urine UA Negative (Negative); Leukocyte Esterase Urine Negative (Negative); Nitrite Urine Negative (Negative); Urine Blood Negative (Negative); Urine Ketones Negative (Negative); Urine Protein Negative (Neg-Trace)
[2023-07-25 10:54] LABS: Basophils Absolute Auto 0.1 X10*3/uL (0.0-0.2); Basophils Percent Auto 0.7 % (0-2); Eosinophils Absolute Auto 0.1 X10*3/uL (0.0-0.4); Eosinophils Percent Auto 0.7 % (0-4); Hematocrit 42.8 % (37.0-47.0); Hemoglobin 14.8 g/dl (12.0-16.0); Imm Gran Abs Auto 0.02 X10*3/uL (0.00-0.03); Imm Gran Pct Auto 0.3 % (0.0-0.4); Lymphocytes Absolute Auto 2.5 X10*3/uL (1.2-4.9); Lymphocytes Percent Auto 34.7 % (20-40); Mean Corpuscular HGB Conc 34.6 g/dl (31.0-35.0); Mean Corpuscular Hemoglobin 32.8 pg (27.0-33.0); Mean Corpuscular Volume 94.9 fL (80.0-98.0); Mean Platelet Volume 10.4 fL (9.4-12.3); Monocytes Absolute Auto 0.4 X10*3/uL (0.1-1.2); Monocytes Percent Auto 5.8 % (2-11); Neutrophils Absolute Auto 4.1 x10*3/uL (2.0-8.3); Neutrophils Percent Auto 57.8 % (45-73); Platelet Count 212 X10*3/uL (160-400); Red Blood Count 4.51 X10*6/uL (4.20-5.50); Red Cell Distribution Width 12.9 % (11.0-16.0); White Blood Count 7.1 X10*3/uL (4.8-10.8)
[2023-07-25 11:05] LABS: Alanine Aminotransferase 8 U/L (0-31); Albumin Level 4.4 g/dL (3.5-5.0); Alkaline Phosphatase 61 U/L (39-117); Anion Gap 13 (12-20); Aspartate Amino Transferase 13 U/L (5-31); Bilirubin Total 0.4 mg/dL (0.0-1.0); Blood Urea Nitrogen 9 mg/dL (9-16); Calcium 9.5 mg/dL (8.4-10.2); Carbon Dioxide 22 mmol/L (22-29); Chloride 110 mmol/L (96-108); Creatinine Clr Calc Pharmacy 85.9; Estimated Glomerular Filt Rate > 60; Glucose Random 108 mg/dL (60-115); Potassium 4.2 mmol/L (3.3-5.1); Sodium 141 mmol/L (135-145); Total Protein 6.9 g/dL (6.5-8.0)
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
[2023-07-25] MEDS: Ketorolac Tromethamine 30 MG/ML VIAL IM (11:38)
[2023-07-25] MEDS: Cyclobenzaprine HCl 10 MG TABLET PO (11:38)
--- NOTE | 2023-07-25 11:40 | PC.NURSE ---
patient a&ox3, pt c/o left lower back and kidney pain, pt medicated with po and IM medications, US is currently at bedside to perform renal US, call martinez within reach, will continue to monitor
[2023-07-25 12:25] LABS: C Reactive Protein < 0.10 mg/dL (< or = 0.50)
[2023-07-25 12:30] VITALS: BP 118/89; PULSE 72; RESP 18; TEMP 36.3; O2SAT 100
[2023-07-25] MEDS: Lidocaine 4 % Patch ADH..PATCH 1 PATCH TRANSDERMA (12:39)
--- NOTE | 2023-07-25 12:40 | PC.NURSE ---
pt medicated for pain per order
[2023-07-25 13:10] LABS: Erythrocyte Sedimentation Rate 4 MM/HR (0-20)
[2023-07-25 14:00] VITALS: BP 116/78; PULSE 74; RESP 18; TEMP 36.7; O2SAT 100
== END 2023-07-25 15:23 | disposition home or self-care (01) ==
PROVIDERS: Physician Assistant Medical; Emergency Provider Emergency Medicine; PCP Nurse Practitioner Family
DX: S39.012A Strain of muscle, fascia and tendon of lower back, initial encounter (principal); M54.6 Pain in thoracic spine; N23 Unspecified renal colic; X58.XXXA Exposure to other specified factors, initial encounter; Y93.9 Activity, unspecified; Y92.9 Unspecified place or not applicable; Y99.9 Unspecified external cause status; Z79.899 Other long term (current) drug therapy
CPT/HCPCS: 36415; 72072; 72100; 76775; 80053; 81003; 85025; 85652; 86140; 96372; 99284; J1885

== ENCOUNTER 2024-01-11 10:59 | Outpatient (AMB) | payer OTHER, SELFPAY ==
--- NOTE | 2024-01-11 11:07 | A.OFFPC_ITS ---
Vital Signs 01/11/24 11:08 Height 5 ft 9 in Weight 166 lb BMI 24.5 BP 118/68 Blood Pressure Location Lt brachial Position Sitting Pulse 61 Pulse Source Pulse Oximeter Pulse Oximetry (%) 98 Oxygen Delivery Method Room Air Intake Visit Reasons: Physical Exam Intake Note: pt is here for annual exam, mammo is booked for 03/2024, due for colonoscopy, pap booked for 01/2024 Allergies No Known Allergies Allergy (Verified 01/11/24 12:37) Medication List - Last Reconciled 01/11/24 by JOLLY Hall-YUKO [id number]-heujiaa 600-50-300 mg (Triumeq) 1 tab PO DAILY albuterol sulfate 90 mcg/actuation 1 - 2 puffs inhalation Q4-6H PRN cyclobenzaprine 10 mg PO BEDTIME fluticasone propionate 50 mcg/actuation 1 spray intranasal DAILY lidocaine 5% 1 patch topical DAILY loratadine 10 mg PO DAILY 90 days Tobacco use date assessed: 01/11/24 Dental Screening Dental Screen Date: 01/11/24 Did you have a dental visit in the last 12 months?: Yes Did you have a dental problem in the last 6 months where you did not have access to dental care?: No Was dental information given to patient?: Patient has dentist HPI Physical Exam HPI Details Pt is here for a PE. Will order labs. 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 Mammo is up to date. Due for colon screen, will refer to GI. Pt has been smoking up to 1.5 packs per day since age 22. Will refer for low-dose lung CT. Pt c/o increased mucus production and allergies. Recommended OTC cetirizine up to 2 tabs bid. [facility] Medical History Screening for colon cancer Physical exam Upper respiratory tract infection Visit for suture removal Cellulitis of left leg Low back pain Chest discomfort Right knee pain Chronic pain of right thumb Well woman exam Warts, genital HIV (human immunodeficiency virus infection) History of abnormal cervical Pap smear Surgical History S/P LEEP Family History Mother Breast CA Son Mental health disorder Social History Housing: Condominium Are you a primary day care director to a significant other at home: No Do you presently have visiting nurse or other home services: No Alcohol intake: current Alcohol intake frequency: holidays/special occasions only Patient Tobacco Use Status: Former Tobacco user Quit Date: quit last week Tobacco use type: Cigarette e-Cigarette/Vaping Use: Never Used Second Hand Smoke Exposure: No Substance Use Type: Marijuana Current occupational status: employed Current occupation: rt handed Sexual orientation: Straight/Heterosexual Gender identity: Female Cognitive needs: No Hearing needs: No Vision needs: No Female Reproductive History Menstrual Age of Menarche: 15 Questionnaire PHQ-9 Over the last 2 weeks, how often have you been bothered by any of the following problems? 1. Little interest or pleasure in doing things: not at all 2. Feeling down, depressed, or hopeless: not at all 3. Trouble falling or staying asleep, or sleeping too much: not at all 4. Feeling tired or having little energy: not at all 5. Poor appetite or overeating: not at all 6. Feeling bad about yourself - or that you are a failure or have let yourself or your family down: not at all 7. Trouble concentrating on things, such as reading the newspaper or watching television: not at all 8. Moving or speaking so slowly that other people could have noticed. Or the opposite - being so fidgety or restless that you have been moving around a lot more than usual: not at all 9. Thoughts that you would be better off or of hurting yourself in some way: not at all Total score: 0 Depression Screening Interpretation: Negative Depression Screening Done: Yes 03641 - PHQ-9 Billing: Yes Source: Developed by Drs. Carlyle Che, Marilee Fernando, Ayo Grant and colleagues, with an educational dominique from [employer]. Thrive Questionnaire Date Thrive assessed: 01/11/24 I am a: Patient What is your living situation today?: I have a steady place to live Within the past 12 months, did the food you bought not last and you didn't have the money to get more?: Never true Within the past 12 months, did you worry whether your food would run out before you got money to buy more?: Never true Do you have trouble paying for medicines?: No Do you have trouble getting transportation to medical appointments?: No Do you have trouble paying your heating and electricity bill?: No Do you have trouble taking care of your child, family member or friend?: No Do you have trouble with day-to-day activities such as bathing, preparing meals, shopping, managing finances, etc.?: No Are you currently unemployed and looking for a job?: No Are you interested in more education?: No Please select the resources that you would like help with: None Currently or been in a relationship where the following occur: no concerns reported THRIVE Score: 0 AUDIT C Alcohol Use Questionnaire (AUDIT-C) 1. How often do you have a drink containing alcohol?: Monthly or less 2. How many drinks containing alcohol do you have on a typical day when you are drinking?: 1 or 2 3. How often do you have six or more drinks on one occasion?: Never Total Score: 1 Score Reviewed/Action Taken: Yes LANCE-7 AMB Questionnaire LANCE-7 Date LANCE - 7 assessed: 01/11/24 Feeling nervous, anxious, or on edge: 0 = Not at all Not being able to stop or control worryin = Not at all Worrying too much about different things: 0 = Not at all Trouble relaxin = Not at all Being so restless that it is hard to sit still: 3 = Nearly every day Becoming easily annoyed or irritable: 1 = Several days Feeling afraid as if something awful might happen: 0 = Not at all Total LANCE-7 score (0-4 normal; 5-9 mild; 10-14 moderate; 15-21 severe): 4 Source: Developed by Drs. Carlyle Che, Marilee Fernando, Ayo Grant and colleagues, with an educational dominique from [employer]. LANCE-7 Assessment Billing LANCE-7 Assessment Tool: LANCE-7 Assessment 39977 Review of Systems Const Denies chills and Denies fever(s) Eyes Denies blurry vision ENT Denies vertigo, Denies dizziness and Denies sore throat Card Denies chest pain at rest, Denies chest pain with activity, Denies diaphoresis, Denies dyspnea and Denies dyspnea on exertion Resp Denies cough, Denies dyspnea, Denies dyspnea on exertion and Denies wheezing GI Denies abdominal pain, Denies melena, Denies hematochezia, Denies constipation, Denies diarrhea and Denies loose stools Denies hematuria Musc Denies numbness and Denies tingling Skin/Breast Denies lesions Neuro Denies vertigo, Denies dizziness, Denies numbness and Denies tingling Psych Denies anxiety, Denies depression, Denies homicidal ideation, Denies suicidal ideation and Denies other (substance abuse) Aller/Immun Denies wheezing Physical exam (Primary Care) Vital Signs: Last Vital Signs Pulse 61 01/11/24 11:08 BP 118/68 01/11/24 11:08 Pulse Ox 98 01/11/24 11:08 Oxygen Delivery Method Room Air 01/11/24 11:08 BMI result Body Mass Index 24.5 Tobacco/Smoking Status: Tobacco use Status Tobacco use date assessed 01/11/24 01/11/24 11:16 Patient Tobacco Use Status Former Tobacco user 01/11/24 11:08 Tobacco use type Cigarette 01/11/24 11:08 e-Cigarette/Vaping Use Never Used 01/11/24 11:08 PHQ-9: PHQ-9 Score PHQ-9: Total score 0 01/11/24 11:26 Depression Screening Interpretation: Negative Thrive Assessment: Date of Thrive Assessment Date Thrive assessed 01/11/24 01/11/24 11:16 Currently or been in a relationship where the following occur: no concerns reported Const General: cooperative Nutritional Appearance: well nourished Orientation/consciousness: patient oriented x3 HENMT Head: Yes normal to inspection, Yes normocephalic and Yes atraumatic Ears: TM's normal bilaterally Eyes General: appearance normal, both eyes and all related structures Alignment and Position: alignment normal and position normal Neck Neck: Yes normal visual inspection and Yes no lymphadenopathy Thyroid: Thyroid normal Resp Effort & Inspection: normal respiratory effort Auscultation: clear to auscultation bilaterally and diminished lung sounds Cardio Rate: regular rate Rhythm: regular rhythm Heart sounds: S1 normal heart sound present, S2 normal heart sound present and no murmurs GI Palpation (GI): Soft to palpation and nontender Auscultation: normal bowel sounds Skin Rashes: no rashes Neuro General: patient oriented x3, moves all extremities, no focal motor deficits and deep tendon reflexes 2+ bilaterally Romberg Test: Negative Psych Appearance: grossly normal Mental Status: mental status grossly normal Speech and movement: Normal speech and movement present Affect: normal affect Attitude: cooperative Thought process: Normal thought process present Thought content: Normal thought content present Insight: Good insight present (Psych) Judgement: Good judgement present (Psych) Assessment and Plan Assessment & Plan (1) Physical exam: Code(s): Z00.00 - Encounter for general adult medical examination without abnormal findings Plan: Labs ordered (2) Screening for colon cancer: Code(s): Z12.11 - Encounter for screening for malignant neoplasm of colon Plan: Referred to GI (3) Smoker: Code(s): F17.200 - Nicotine dependence, unspecified, uncomplicated Plan The patient agreed to the use of a back office medical assistant for this encounter. Scribed for STEPHNO Daigle by Jamaica Campos back office medical assistant, on 01/11/2024 at 11:25 EST. Orders: Orders Complete Blood Count Auto Diff Today Z00.00 - Encounter for general adult medical examination without abnormal findings TSH reflex Free T4 Today Z00.00 - Encounter for general adult medical examination without abnormal findings Lipid Panel Today Z00.00 - Encounter for general adult medical examination without abnormal findings Comprehensive [place]. Panel Fast Today Z00.00 - Encounter for general adult medical examination without abnormal findings UA CC w/rflx Micro + Cult Today Z00.00 - Encounter for general adult medical examination without abnormal findings Referrals Gastroenterology Referral Z12.11 - Encounter for screening for malignant neoplasm of colon Thoracic Surgery Referral F17.200 - Nicotine dependence, unspecified, uncomplicated Medications: Refilled cyclobenzaprine 10 mg PO BEDTIME 7 tabs 0RF Coding Level of Care Code Est Pt Prev Care 40-64y(55833) Diagnoses Physical exam Z00.00 Screening for colon cancer Z12.11 Smoker F17.200 Additional Codes LANCE-7 Assessment Billing - LANCE-7 Assessment Tool: LANCE-7 Assessment 75292 ([id number])
[2024-01-11 11:08] VITALS: BP 118/68; PULSE 61; O2SAT 98; BMI 24.5
== END 2024-01-11 11:40 | disposition home or self-care (01) ==
PROVIDERS: PCP Nurse Practitioner Family; Visit Provider Nurse Practitioner Family
DX: Z00.00 Encounter for general adult medical examination without abnormal findings (principal); Z12.11 Encounter for screening for malignant neoplasm of colon; F17.200 Nicotine dependence, unspecified, uncomplicated
CPT/HCPCS: 99396

== ENCOUNTER 2024-02-09 07:55 | Outpatient (AMB) | payer OTHER, SELFPAY ==
--- NOTE | 2024-02-09 07:58 | MHC.OFFVIS ---
Intake Vital Signs 02/09/24 08:01 Height 5 ft 9 in Weight 167 lb 8.821 oz BMI 24.7 BP 112/60 Blood Pressure Location Lt brachial Position Sitting Pulse 77 Intake Visit Reasons: Pre Colonoscopy screening Intake Note: Xi presents in the office as a colonoscopy screening. CC: She states that she is not having any concerns. She is here for a pre colonoscopy. Allergies Seasonal Allergies Allergy (Mild, Verified 02/09/24 08:01) Unknown Medication List - Last Reconciled 02/09/24 by Kristin Lopez PA-C [id number] 600-50-300 mg (Triumeq) 1 tab PO DAILY albuterol sulfate 90 mcg/actuation 1 - 2 puffs inhalation Q4-6H PRN fluticasone propionate 50 mcg/actuation 1 spray intranasal DAILY lidocaine 5% 1 patch topical DAILY HPI HPI Comments History of Present Illness Details A 53 y/o female referred back for index screening-colonoscopy- back in 2021- Covid - no colonoscopy done complaints she works full-time as a do She has no GI or general Appetite is good Bowels ok No family history GI cancer No nausea, vomiting, hematemesis, hematochezia fever chills PFSH Medical History Screening for colon cancer Physical exam Upper respiratory tract infection Visit for suture removal Cellulitis of left leg Low back pain Chest discomfort Right knee pain Chronic pain of right thumb Well woman exam Warts, genital HIV (human immunodeficiency virus infection) History of abnormal cervical Pap smear Surgical History S/P LEEP Family History Mother Breast CA Son Mental health disorder Social History Housing: Condominium Are you a primary insurance healthcare representative to a significant other at home: No Do you presently have visiting nurse or other home services: No Alcohol intake: current Alcohol intake frequency: holidays/special occasions only Patient Tobacco Use Status: Former Tobacco user Quit Date: quit last week Tobacco use type: Cigarette e-Cigarette/Vaping Use: Never Used Second Hand Smoke Exposure: No Substance Use Type: Marijuana Current occupational status: employed Current occupation: rt handed Sexual orientation: Straight/Heterosexual Gender identity: Female Cognitive needs: No Hearing needs: No Vision needs: No Female Reproductive History Menstrual Age of Menarche: 15 Review of Systems Const All systems reviewed & are unremarkable except as noted in HPI and below Card Denies chest pain and Denies dyspnea Resp Denies dyspnea GI Denies abdominal pain, Denies dyspepsia and Denies heartburn Physical Exam Vital Signs: Last Vital Signs Pulse 77 02/09/24 08:01 BP 112/60 02/09/24 08:01 BMI result Body Mass Index 24.7 Const General: cooperative, healthy appearing, comfortable and no acute distress Orientation/consciousness: patient oriented x3 Limitations: no limitations Eyes Sclerae: sclerae normal Resp Effort & Inspection: normal respiratory effort and able to speak in complete sentences Auscultation: clear to auscultation bilaterally, no rales, no rhonchi and no wheezes Cardio Rate: regular rate Rhythm: regular rhythm Heart sounds: S1 normal heart sound present and S2 normal heart sound present GI Palpation (GI): Soft to palpation and nontender Auscultation: normal bowel sounds Skin General skin exam: no rashes or lesions noted Neuro General: patient oriented x3 Extrem General: Yes full ROM Psych Appearance: grossly normal and well kempt Mental Status: mental status grossly normal Speech and movement: Normal speech and movement present Affect: normal affect Attitude: cooperative Thought process: Normal thought process present Assessment & Plan Assessment & Plan (1) Screening for colon cancer: Comment: Index screening colonoscopy no GI or general complain Discussed procedure, rare risks need for escort Code(s): Z12.11 - Encounter for screening for malignant neoplasm of colon Plan: Index screening colonoscopy Plan Index screening colonoscopy MG prep Orders: Orders Colonoscopy - GI Use Only Today Z12.11 - Encounter for screening for malignant neoplasm of colon Medications: New bisacodyl (Dulcolax (bisacodyl)) Day before procedure @ 12 noon Take 4 tablets by mouth followed by large glass of water 20 mg (4 x 5 mg) PO ONCE PRN 4 tabs 0RF colonoscopy prep 1 day Z12.11 - Encounter for screening for malignant neoplasm of colon polyethylene glycol 3350 (Miralax) Take as directed by mouth the day before your procedure. 238 grams PO ONCE PRN 238 grams 0RF laxative effect 1 day Discontinued loratadine Discontinued Reason: Patient no longer taking 10 mg PO DAILY 90 days 90 tabs 1RF Patient Instructions: Index screening colonoscopy MG prep, reviewed literature given Encouraged to call questions or concerns Coding Level of Care Code New Pt Level 3 (33877) Diagnoses Screening for colon cancer Z12.11 Time Spent (min) 30
[2024-02-09 08:01] VITALS: BP 112/60; PULSE 77; BMI 24.7
== END 2024-02-09 08:55 | disposition home or self-care (01) ==
PROVIDERS: PCP Nurse Practitioner Family; Visit Provider Physician Assistant
DX: Z01.818 Encounter for other preprocedural examination (principal); Z12.11 Encounter for screening for malignant neoplasm of colon
CPT/HCPCS: 99212

== ENCOUNTER → 2024-02-09 07:55 | Outpatient (BNVA) | payer OTHER, SELFPAY | PROVIDERS: PCP Nurse Practitioner Family; Visit Provider Physician Assistant | DX: Z12.11 Encounter for screening for malignant neoplasm of colon (principal) | CPT/HCPCS: 99212 ==

== ENCOUNTER 2024-03-09 09:13 | Outpatient (AMB) | payer OTHER, SELFPAY ==
--- NOTE | 2024-03-09 08:16 | MHC.OFFVIS ---
Intake Visit Reasons: Current Smoker Allergies Seasonal Allergies Allergy (Mild, Verified 02/09/24 08:01) Unknown HPI HPI Current Smoker: Details: Initial visit for this 53yo smoker with a 20+PYH Patient has been smoking since age 26 for 27 years at max 1ppd. She is now down to 1-2 cigarettes a day. Trying to quit along with sister who is also in LDCT program. . Reports daily marijuana use. Denies second hand smoke exposure. Denies exposure to chemicals or substances like asbestos. . Denies known family history of lung cancer. Denies personal history of cancers. Denies chest CT in last year. . Denies recent travel outside the [place]. Denies recent respiratory illness or recent hospitalization for respiratory issues. Reports esting positive for COVID 2019 and 2021 Admits receiving COVID Vaccine.x 1. . Denies fever, chills, new/worsening cough, hemoptysis, hoarseness or dysphagia. Denies significant chest pain, significant dyspnea or unintentional weight loss. Patient Lung Cancer Screening Questionnaire reviewed with patient by provider. . Shared Decision Making Completed. Patient meets criteria. Discussed in detail with patient, the risk vs benefit of LDCT screening. Patient consents to proceed with scan. Discussed smoking cessation. [facility] Medical History (Updated 03/09/24 @ 09:40 by Alma Palma PA-C) HIV (human immunodeficiency virus infection) Dyslipidemia Nicotine dependence, cigarettes, uncomplicated Warts, genital JANA II (cervical intraepithelial neoplasia II) (~2020) History of abnormal cervical Pap smear Trigger thumb, right thumb Low back pain Surgical History (Updated 03/09/24 @ 09:36 by Alma Palma PA-C) History of bunionectomy of right great toe History of thumb surgery History of loop electrical excision procedure (LEEP) Family History Mother Breast CA Son Mental health disorder Social History (Updated 03/09/24 @ 09:41 by Alma Palma PA-C) Housing: Condominium Are you a primary administrator health care facility to a significant other at home: No Do you presently have visiting nurse or other home services: No Alcohol intake: current Alcohol intake frequency: holidays/special occasions only Patient Tobacco Use Status: Current someday Tobacco user Tobacco use type: Cigarette Years Smoked: onset 26yo, 1ppd x 27yrs, now 1-2cig/day - 20+PYH e-Cigarette/Vaping Use: Never Used Second Hand Smoke Exposure: No Substance Use Type: Marijuana Current occupational status: employed Current occupation: rt handed Sexual orientation: Straight/Heterosexual Gender identity: Female Cognitive needs: No Hearing needs: No Vision needs: No Female Reproductive History Menstrual Age of Menarche: 15 Assessment & Plan Assessment & Plan (1) Nicotine dependence, cigarettes, uncomplicated: Comment: (smoker - onset 26yo, 1ppd x 27yrs, now 1-2cig/day - 20+PYH) Code(s): F17.210 - Nicotine dependence, cigarettes, uncomplicated Category: Medical Plan: - SDM visit completed today in office. - Patient meets criteria for LDCT for lung cancer screening purposes and is asymptomatic. - Smoking cessation counseling offered. Patients can always call [phone]. - Will arrange for a LDCT scan of the chest for screening purposes at [facility]. - Risks, benefits, and alternatives were discussed in detail and the patient agrees to proceed. - Risks discussed include but are not limited to: radiation exposure, anxiety during testing and while awaiting results, false negatives, false positives and possibility of additional intervention such as further imaging or surgical procedures for benign disease. - Benefits are obviously detection of lung cancer at an early stage which can lead to improved outcomes. - Discussed the importance of screening program compliance with adherence to yearly LDCT scan as scheduled - or sooner interval scans for personalized screening regimen. - Discussed follow up plan. Our office will send a letter discussing results and if needed set up phone call and office visit based on CT findings. - Patient educated on results categorization and the management decisions for suspicious findings potentially found on the screening LDCT scan. Any patient with a Lung RADS score of 3 or 4 will be reviewed by a multidisciplinary team at [facility] to form a plan of action in regards to scan findings. - If further work up is warranted for a suspicious lung finding this will be followed by the Lung Cancer Screening program in conjunction with the Thoracic Surgery Department at [facility]. - A copy of the office note and LDCT will be sent to the patient's PCP - as well as documentation on any associated further plans of care. - Incidental findings on LDCT are the PCP's responsibility. These findings are indicated with an S finding on the LDCT Assessment. A note discussing the findings will be sent to the PCP who is then responsible for further management. - All questions answered.? Coding Level of Care Code Lung Cancer Screening G0296 Diagnoses Nicotine dependence, cigarettes, uncomplicated F17.210
== END 2024-03-09 09:42 | disposition home or self-care (01) ==
PROVIDERS: PCP Nurse Practitioner Family; Referring Provider Nurse Practitioner Family; Visit Provider Physician Assistant Medical
DX: F17.210 Nicotine dependence, cigarettes, uncomplicated (principal)
CPT/HCPCS: G0296

== ENCOUNTER 2024-03-09 09:41 | Outpatient (REF) | payer OTHER, SELFPAY ==
--- NOTE | ~2024-03-09 | CT_ITS ---
EXAMINATION: CT LUNG SCREENING CLINICAL INFORMATION: Nicotine dependence, cigarettes, uncomplicated. The patient is a current smoker with a 32 pack-year history of smoking. COMPARISON: Chest x-ray 01/31/2014. TECHNIQUE: Multidetector volumetric CT imaging of the chest is performed on a Siemens SOMATOM Definition scanner without contrast using low dose technique. Additional 2D coronal and sagittal reformatted images and axial 3D maximum intensity projection (MIP) images are generated on the CT workstation. This CT examination was performed using dose optimization techniques as appropriate, variously including the following: *Automated exposure control *Adjustment of mA and/or kV according to patient size (this includes techniques or standardized protocols for targeted exams where dose is matched to indication/reason for exam; i.e. extremities or head) *Use of iterative reconstruction technique TOTAL EXAM DLP: 50.9 mGy-cm. CTDIvol: 1.34 mGy. FINDINGS: PULMONARY NODULES: A number of pulmonary nodules are present includin mm at the right apex (5:99). 5 mm subpleural nodule left upper lobe (5:253). 3 mm triangular perifissural left lower lobe lymph node (5:304). 7 mm perifissural nodule right middle lobe, which is flat and likely a perifissural lymph node (5:234 and powell image). 2 mm perifissural right middle lobe nodule (5:345). LUNGS: Lungs bilaterally symmetrically expanded. Cgrnxsyu-yo-yesryz emphysematous changes are present. Diffuse bronchial thickening is seen. No effusion or pneumothorax. Central airways patent. MEDIASTINUM: No mediastinal, hilar or axillary adenopathy or free fluid collection. CORONARY ARTERY CALCIFICATION: None visualized on this study. THYROID GLAND: Unremarkable to the extent seen. CARDIOVASCULAR STRUCTURES: Aortic and heart size normal. No pericardial effusion. CHEST WALL/AXILLA: Unremarkable. UPPER ABDOMEN: Included portions of the solid organs in the upper abdomen unremarkable on noncontrast imaging. OSSEOUS STRUCTURES: No suspicious focal findings. CT/CT lung screening IMPRESSION: 1. Multiple pulmonary nodules are present, the largest measuring 7 mm. 2. Qgadpvky-kg-ohyxfl emphysema. ASSESSMENT: 1. Lung-RADS Category 3: Probably benign findings. N/A 2. Lung-RADS Category S: Negative. There are no clinically significant or potentially clinically significant findings not related to the lungs requiring urgent additional evaluation. RECOMMENDATION: A 6-month follow up low-dose lung CT scan is recommended. An order for CT LUNG CANCER SCREENING SHORT INTERVAL FOLLOWUP ([id number]) can be placed.
== END 2024-03-09 09:42 | disposition home or self-care (01) ==
LOC: HO.CT 09:41
PROVIDERS: PCP Nurse Practitioner Family; Visit Provider Physician Assistant Medical
DX: Z12.2 Encounter for screening for malignant neoplasm of respiratory organs (principal); F17.210 Nicotine dependence, cigarettes, uncomplicated
CPT/HCPCS: 71271; G0296

== ENCOUNTER 2024-04-12 10:24 | Outpatient (AMB) | payer OTHER, SELFPAY ==
[2024-04-12 10:34] VITALS: BP 110/70; BMI 25.0
--- NOTE | 2024-04-12 10:34 | MHC.OFFVIS ---
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 No complaints. Last Pap/HPV was negative in 04/15 this was preceded by JANA 1 in 04/14 and JANA 2 status post LEEP cone with post cone ECC in Last Mammogram was BI-RADS 1 in 05/15 No previous screening Colonoscopy, the patient is scheduled with GI for screening colonoscopy in few weeks [facility] Medical History HIV (human immunodeficiency virus infection) Dyslipidemia Nicotine dependence, cigarettes, uncomplicated Warts, genital JANA II (cervical intraepithelial neoplasia II) (~2020) History of abnormal cervical Pap smear Trigger thumb, right thumb Low back pain Surgical History History of bunionectomy of right great toe History of thumb surgery History of loop electrical excision procedure (LEEP) Family History Mother Breast CA Son Mental health disorder Social History Housing: Condominium Are you a primary childcare attendant to a significant other at home: No Do you presently have visiting nurse or other home services: No Alcohol intake: current Alcohol intake frequency: holidays/special occasions only Patient Tobacco Use Status: Current someday Tobacco user Tobacco use type: Cigarette Years Smoked: onset 26yo, 1ppd x 27yrs, now 1-2cig/day - 20+PYH e-Cigarette/Vaping Use: Never Used Second Hand Smoke Exposure: No Substance Use Type: Marijuana Current occupational status: employed Current occupation: rt handed Sexual orientation: Straight/Heterosexual Gender identity: Female Cognitive needs: No Hearing needs: No Vision needs: No Female Reproductive History Menstrual Age of Menarche: 15 control method: none Total pregnancies: 2 Full term: 2 Number of Living Children: 2 Date of last pap smear: 04/08/23 History of abnormal pap smear: Yes History of STI: No Date of Mammogram: 04/28/23 History of abnormal mammogram: No Review of Systems Const All systems reviewed & are unremarkable except as noted in HPI and below Card Reports as per HPI Resp Reports as per HPI GI Reports as per HPI and Reports no additional complaints Reports as per HPI Physical Exam Vital Signs: Last Vital Signs BP 110/70 04/12/24 10:34 BMI result Body Mass Index 25.0 Const General: cooperative, healthy appearing and comfortable Chest Chest palpation & inspection: normal inspection of the chest and normal palpation of entire chest wall Breast/axilla inspection: normal inspection of the breasts and normal inspection of the axillae Breast/axilla palpation: normal palpation of the breasts, normal palpation of the axillae and no axillary lymphadenopathy Resp Effort & Inspection: normal respiratory effort Auscultation: clear to auscultation bilaterally Percussion: percussion normal Cardio Palpation: normal PMI Rate: regular rate Rhythm: regular rhythm Heart sounds: no murmurs and no rubs Peripheral pulses: Peripheral pulses 2+ throughout GI Inspection: Yes normal to inspection Palpation (GI): Soft to palpation, nontender, no guarding, not rigid and No hepatosplenomegaly present Percussion: Yes normal to percussion Auscultation: normal bowel sounds Rectal Exam - Female: deferred General: Yes bladder normal to palpation External Female Exam: No lesion Speculum Exam - Vagina: normal appearance of the vagina, normal palpation, normal vaginal discharge and not erythematous Speculum Exam - Cervix: normal appearance of the cervix and normal palpation Bimanual exam- vagina & uterus: normal bimanual exam, normal palpation, uterine size normal, bladder normal to palpation, consistency normal and normal palpation Bimanual Exam- Adnexa, other: normal adnexae, no masses and no tenderness Assessment & Plan Assessment & Plan (1) Well woman exam: Comment: JANA 2 in 2020 status post LEEP cone JANA 1 in 03/2022 Negative co testing in 04/15 Code(s): Z01.419 - Encounter for gynecological examination (general) (routine) without abnormal findings Category: Medical Plan: Co testing done. Counseled the patient about the recommended dietary allowance of 1200 mg of Calcium & 600 IU of vitamin D. Mammogram scheduled on 05/01/24. The patient is scheduled with GI for screening colonoscopy in few weeks . The patient was instructed to perform monthly self-breast exams and schedule annual exam in a year. All questions answered and the patient verbalized understanding. Coding Level of Care Code Est Pt Prev Care 40-64y(47934) Diagnoses Well woman exam Z01.419
== END 2024-04-12 10:54 | disposition home or self-care (01) ==
PROVIDERS: PCP Nurse Practitioner Family; Visit Provider Obstetrics & Gynecology
DX: Z01.419 Encounter for gynecological examination (general) (routine) without abnormal findings (principal)
CPT/HCPCS: 99396

== ENCOUNTER 2024-04-12 10:24 | Outpatient (REF) | payer OTHER, SELFPAY ==
[2024-04-17 10:44] LABS: HPV mRNA E6/E7 Not Detected (Not Detected)
== END 2024-04-12 10:25 | disposition home or self-care (01) ==
LOC: HO.LNP 10:24
PROVIDERS: PCP Nurse Practitioner Family; Visit Provider Obstetrics & Gynecology
DX: Z01.419 Encounter for gynecological examination (general) (routine) without abnormal findings (principal)
CPT/HCPCS: 87624; 88142; 88175; 99396

== ENCOUNTER 2024-05-01 08:02 | Outpatient (REF) | payer OTHER, SELFPAY | END 2024-05-01 08:03 | disposition home or self-care (01) | LOC: HO.MAMMO 08:02 | PROVIDERS: PCP Nurse Practitioner Family; Visit Provider Nurse Practitioner Family | DX: Z12.31 Encounter for screening mammogram for malignant neoplasm of breast (principal) | CPT/HCPCS: 77063; 77067 ==

== ENCOUNTER → 2024-05-01 08:15 | Outpatient (BNV) | payer OTHER, SELFPAY | PROVIDERS: PCP Nurse Practitioner Family; Visit Provider Radiology Diagnostic Radiology | DX: Z12.31 Encounter for screening mammogram for malignant neoplasm of breast (principal) | CPT/HCPCS: 77063; 77067 ==

== ENCOUNTER 2024-05-21 14:28 | Outpatient (AMB) | payer OTHER, SELFPAY ==
[2024-05-21 15:31] VITALS: BP 116/78; PULSE 69; TEMP 36.6; O2SAT 99; BMI 25.4
--- NOTE | 2024-05-21 15:31 | MHC.OFFWIV ---
Intake Vital Signs 05/21/24 15:31 Height 5 ft 9 in Weight 172 lb BMI 25.4 BP 116/78 Blood Pressure Location Rt brachial Position Sitting Pulse 69 Pulse Source Pulse Oximeter Temp 97.8 F Temp Source Oral Pulse Oximetry (%) 99 Oxygen Delivery Method Room Air Intake Visit Reasons: possible UTI [phone] Intake Note: pt is here c/o urinary urgency and burning. Started this morning Patient Tobacco Use Status: Current someday Tobacco user Allergies Seasonal Allergies Allergy (Mild, Verified 05/21/24 15:37) Unknown Do you need a note to return to daycare/school/sports/work: No HPI HPI Comments History of Present Illness Details Patient presents to urgent care today for sick visit Endorses burning with urination, increased frequency and suprapubic abdominal pain. Denies back pain, hematuria, fevers or vomiting. Denies vaginal discharge. Denies concern for STI PFSH Medical History HIV (human immunodeficiency virus infection) Dyslipidemia Nicotine dependence, cigarettes, uncomplicated Warts, genital JANA II (cervical intraepithelial neoplasia II) (~2020) History of abnormal cervical Pap smear Trigger thumb, right thumb Low back pain Surgical History History of bunionectomy of right great toe History of thumb surgery History of loop electrical excision procedure (LEEP) Family History Mother Breast CA Son Mental health disorder Social History Housing: Condominium Are you a primary hospice spiritual care coordinator to a significant other at home: No Do you presently have visiting nurse or other home services: No Alcohol intake: current Alcohol intake frequency: holidays/special occasions only Patient Tobacco Use Status: Current someday Tobacco user Tobacco use type: Cigarette Years Smoked: onset 26yo, 1ppd x 27yrs, now 1-2cig/day - 20+PYH e-Cigarette/Vaping Use: Never Used Second Hand Smoke Exposure: No Substance Use Type: Marijuana Current occupational status: employed Current occupation: rt handed Sexual orientation: Straight/Heterosexual Gender identity: Female Cognitive needs: No Hearing needs: No Vision needs: No Female Reproductive History Menstrual Age of Menarche: 15 Review of Systems Const All systems reviewed & are unremarkable except as noted in HPI and below Physical Exam Vital Signs: Last Vital Signs Temp 97.8 F 05/21/24 15:31 Pulse 69 05/21/24 15:31 BP 116/78 05/21/24 15:31 Pulse Ox 99 05/21/24 15:31 Oxygen Delivery Method Room Air 05/21/24 15:31 BMI result Body Mass Index 25.4 General: awake, alert, oriented. Answers questions appropriately. Fully engaged in examination. Skin: warm, dry, intact HEENT: Normocephalic. Hearing intact. Cardiac: External chest normal in appearance. Respiratory: No cough, audible wheezing or stridor. Abdomen: without gross distension. soft, nontender. no guarding. no CVA tenderness MS: No obvious swelling or deformities. Neurological: Oriented to person, place, time and situation. Thought process intact. No gait abnormalities appreciated. Psychiatric: Appropriate mood and affect. Good judgment and insight. Results AMB Urinalysis, Automated UA Leukoctes 125 Preet/uL Last Edit by Scar Paul CMA on 05/21/24 15:42 UA Nitrite Negative Last Edit by Scar Paul CMA on 05/21/24 15:42 UA Urobilinogen 0.2 mg/dL Last Edit by Scar Paul CMA on 05/21/24 15:42 UA Protein 0 mg/dL Last Edit by Scar Paul CMA on 05/21/24 15:42 UA pH 6.0 Last Edit by Scar Paul CMA on 05/21/24 15:42 UA Blood 200 Elan/uL Last Edit by Scar Paul CMA on 05/21/24 15:42 UA Specific [place] 1.010 Last Edit by Scar Paul CMA on 05/21/24 15:42 UA Ketone Negative Last Edit by Scar Paul CMA on 05/21/24 15:42 UA Bilirubin 0 mg/dL Last Edit by Scar Paul CMA on 05/21/24 15:42 UA Glucose 0 mg/dL Last Edit by Scar Paul CMA on 05/21/24 15:42 Results Reviewed Results Reviewed: Laboratory Last Values Urine pH (Auto) 6.0 05/21/24 15:40 Specific [place] (Auto) 1.010 05/21/24 15:40 Urine Protein (Auto) 0 mg/dL 05/21/24 15:40 Glucose (UA)(Auto) 0 mg/dL 05/21/24 15:40 Urine Ketones (Auto) Negative 05/21/24 15:40 Urine Blood (Auto) 200 Elan/uL 05/21/24 15:40 Urine Nitrite (Auto) Negative 05/21/24 15:40 Urine Bilirubin (Auto) 0 mg/dL 05/21/24 15:40 Urine Urobilinogen (Auto) 0.2 mg/dL 05/21/24 15:40 Leukocyte Esterase (Auto) 125 Preet/uL 05/21/24 15:40 Assessment & Plan Assessment & Plan (1) UTI (urinary tract infection): Code(s): N39.0 - Urinary tract infection, site not specified Plan Take antibiotics and Pyridium as directed. Increase fluid intake. Follow up with PCP or return here for any new worsening symptoms Orders: Orders AMB Urinalysis Automated Today Z13.9 - Encounter for screening, unspecified Medications: New phenazopyridine (Pyridium) 100 mg PO TID PRN 6 tabs 0RF pain 6 doses nitrofurantoin monohyd/m-cryst 100 mg (Macrobid) must administer with a meal/food 100 mg PO Q12H 14 caps 0RF 7 days Coding Level of Care Code Est Pt Level 3 (24307) Diagnoses UTI (urinary tract infection) N39.0
== END 2024-05-21 15:59 | disposition home or self-care (01) ==
PROVIDERS: PCP Nurse Practitioner Family; Visit Provider Registered Nurse Emergency
DX: N39.0 Urinary tract infection, site not specified (principal); Z13.9 Encounter for screening, unspecified
CPT/HCPCS: 81003; 99213

== ENCOUNTER 2024-06-05 07:50 | Day surgery (SDC) | payer OTHER, SELFPAY ==
--- NOTE | 2024-06-04 12:04 | P.CONAN_ITS ---
Documented by User: Mine Lomeli NP 06/04/24 12:05 HPI - Anesthesia Eval Consult details Narrative: 53yo F for Colonoscopy PMFSH Active Problems Active Problems: All Active Problems UTI (urinary tract infection) (Acute) Pulmonary nodules (Acute) HIV (human immunodeficiency virus infection) (Acute) Dyslipidemia (Acute) Nicotine dependence, cigarettes, uncomplicated (Acute) JANA I (cervical intraepithelial neoplasia I) (Acute ~2019) JANA II (cervical intraepithelial neoplasia II) (Acute ~2020) Low grade squamous intraepithelial lesion (LGSIL) on cervical Pap smear (Acute) Trigger thumb, right thumb (Acute) Screening for colon cancer (Acute) Physical exam (Acute) Past Medical History Medical History HIV (human immunodeficiency virus infection) Dyslipidemia Nicotine dependence, cigarettes, uncomplicated Warts, genital JANA II (cervical intraepithelial neoplasia II) (~2020) History of abnormal cervical Pap smear Trigger thumb, right thumb Low back pain Family History Family History Mother Breast CA Son Mental health disorder Surgical History Surgical History History of bunionectomy of right great toe History of thumb surgery History of loop electrical excision procedure (LEEP) Social History Social History Housing: Condominium Are you a primary career development counselor to a significant other at home: No Do you presently have visiting nurse or other home services: No Alcohol intake: current Alcohol intake frequency: holidays/special occasions only Patient Tobacco Use Status: Former Tobacco user Tobacco use type: Cigarette Years Smoked: onset 26yo, 1ppd x 27yrs, now 1-2cig/day - 20+PYH e-Cigarette/Vaping Use: Never Used Second Hand Smoke Exposure: No Use of substances other than those prescribed or required for medical reasons: Yes Substance Use Type: Marijuana Are you DNR?: No Advance Directives: No Advance Directives Information Provided: Yes Current occupational status: employed Current occupation: rt handed Sexual orientation: Straight/Heterosexual Gender identity: Female Cognitive needs: No Hearing needs: No Vision needs: No Meds Allergies Allergy/AdvReac Type Severity Reaction Status Date / Time Seasonal Allergies Allergy Mild Unknown Verified 05/21/24 15:37 Home Medications ?Medication ?Instructions ?Recorded ?Confirmed ?Last Taken ?Type abacavir 600 mg-dolutegravir 50 1 tab PO DAILY 12/25/20 01/11/24 Unknown History mg-lamivudine 300 mg tablet (Triumeq) Assessment and Plan Assessment Anesthesia Assessment: Chart Reviewed Documented by User: King Roland MD 06/05/24 09:54 PMFSH Past Medical History Medical History HIV (human immunodeficiency virus infection) Dyslipidemia Nicotine dependence, cigarettes, uncomplicated Warts, genital JANA II (cervical intraepithelial neoplasia II) (~2020) History of abnormal cervical Pap smear Trigger thumb, right thumb Low back pain Family History Family History Mother Breast CA Son Mental health disorder Family history of problems with anesthesia: No Surgical History Surgical History History of bunionectomy of right great toe History of thumb surgery History of loop electrical excision procedure (LEEP) History of Problems with Anesthesia: No Social History Social History Housing: Condominium Are you a primary career development counselor to a significant other at home: No Do you presently have visiting nurse or other home services: No Alcohol intake: current Alcohol intake frequency: holidays/special occasions only Patient Tobacco Use Status: Former Tobacco user Tobacco use type: Cigarette Years Smoked: onset 26yo, 1ppd x 27yrs, now 1-2cig/day - 20+PYH e-Cigarette/Vaping Use: Never Used Second Hand Smoke Exposure: No Use of substances other than those prescribed or required for medical reasons: Yes Substance Use Type: Marijuana Are you DNR?: No Advance Directives: No Advance Directives Information Provided: Yes Current occupational status: employed Current occupation: rt handed Sexual orientation: Straight/Heterosexual Gender identity: Female Cognitive needs: No Hearing needs: No Vision needs: No Meds Allergies Allergy/AdvReac Type Severity Reaction Status Date / Time Seasonal Allergies Allergy Mild Unknown Verified 05/21/24 15:37 Home Medications ?Medication ?Instructions ?Recorded ?Confirmed ?Last Taken ?Type abacavir 600 mg-dolutegravir 50 1 tab PO DAILY 12/25/20 01/11/24 Unknown History mg-lamivudine 300 mg tablet (Triumeq) Exam Airway Mallampati Class: I TM Dist: >3cm Neck ROM: Full Partial: Upper and Lower Heart: ok Lungs: ok Assessment and Plan Assessment Anesthesia Assessment: Anesthesia Plan Discussed Final Anesthetic Review Family History of Problems with Anesthesia: No History of Problems with Anesthesia: No NPO: Yes ASA Class: III Final Preanesthetic Review: No Changes in Pt Med Stat, Meds/Allgs Chart Reviewed, Consent Obtained/Reviewed and Anes Risks/Benef Reviewed Patient Risk: Intermediate Procedure Risk: Low Anesthetic Plan Anesthetic Plan: MAC: and Agree w/ Assess. and Plan Disposition: Standard PACU
[2024-06-05 08:20] VITALS: BMI 25.0
[2024-06-05 08:23] VITALS: BP 97/73; PULSE 77; RESP 16; TEMP 36.7; O2SAT 97
[2024-06-05] MEDS: Lactated Ringers 1,000 ML 100 ML IVCONT (08:37)
--- NOTE | 2024-06-05 09:20 | MHC.SHP ---
Pre-Procedural Eval Section A - 24 Hr Update-Section A only Date of Service: 06/05/24 Section B - Complete if H&P > 30 days Chief Complaint: Encounter for screening for malignant neoplasm of Details of Present Illness: Screening for colon cancer Physical exam Upper respiratory tract infection Visit for suture removal Cellulitis of left leg Low back pain Chest discomfort Right knee pain Chronic pain of right thumb Well woman exam Warts, genital HIV (human immunodeficiency virus infection) History of abnormal cervical Pap smear Surgical History S/P LEEP Present Medications: see Short Stay Collaborative assessment Allergies: Allergies Allergy/AdvReac Type Severity Reaction Status Date / Time Seasonal Allergies Allergy Mild Unknown Verified 05/21/24 15:37 Review of Systems Review of Systems Comment: Ten point ROS negative Exam Exam Comment: Gen appear: No acute distress HEENT: no icterus Chest: No overt resp distress Abd: soft, nontender, nondistended Psych: Stable affect, answering questions appropriately Neuro: A/Ox3 noted to move all extremities spontaneously Ext: no peripheral edema Plan Diagnosis/Plan: Unchanged I have reviewed the history and physical and performed a pertinent physical examination on my patient. No changes have occurred unless specified. Time Spent With Patient Time: Total time managing care of this patient today ____ minutes.
[2024-06-05 10:09] VITALS: BP 92/66; PULSE 67; RESP 18; TEMP 36.3; O2SAT 99
[2024-06-05 10:24] VITALS: BP 106/73; PULSE 67; RESP 18; TEMP 36.6; O2SAT 99
--- NOTE | 2024-06-05 16:14 | P.OPN-COLO_ITS ---
Colonoscopy Operative Note Operative Note Date of Service: 06/05/24 Narrative: Procedure: Colonoscopy Indication: Screening Endoscopist: Fartun Pickett MD Anesthesia Provider: Dr King Roland Anesthesia type: MAC Instrument: Olympus [id number]-[id number] Consent: Indication, risks vs benefits, and alternatives were discussed with the patient who gave written informed consent to proceed. EKG, pulse, pulse oximetry and blood pressure were monitored throughout the procedure. Please see anesthesia flowsheet. Procedure: The patient was brought to the procedure room and placed in the left lateral decubitus position. IV medications were administered by the anesthesia provider in attendance. A digital rectal exam was performed which was normal. A distal attachment cap was affixed to the tip of the colonoscope which was then inserted through the anus and advanced through the colon to the cecum at 75 cm,and terminal ileum. Appendiceal orifice and ileocecal valve were identified. Mucosa was carefully examined under high definition white light as the instrument was slowly withdrawn in a retrograde panoramic fashion. Retroflexion was performed in rectum. The procedure was not difficult. There were no immediate obvious complications. The quality of the prep was adequate Withdrawal time 8 minutes. Limitations: No limitations. Findings: Mucosa: Normal to cecum and terminal ileum. Protruding lesions: * Medium internal hemorrhoids without stigmata of recent bleeding. Excavated lesions: * diverticulosis of left sided colon. Impression: 1. Normal colon mucosa 2. Diverticulosis 3. Hemorrhoids Recommendations: - Repeat colonoscopy for asymptomatic colorectal ca screening in 10 years.
== END 2024-06-05 10:37 | disposition home or self-care (01) ==
PROVIDERS: PCP Nurse Practitioner Family; Visit Provider Internal Medicine
PROC: 0DJD8ZZ Inspection of Lower Intestinal Tract, Via Natural or Artificial Opening Endoscopic (ICD-10-PCS; CPT 45378; principal; 2024-06-05 09:20)
DX: Z12.11 Encounter for screening for malignant neoplasm of colon (principal); K57.30 Diverticulosis of large intestine without perforation or abscess without bleeding; K64.8 Other hemorrhoids; J30.2 Other seasonal allergic rhinitis; B20 Human immunodeficiency virus [HIV] disease; J06.9 Acute upper respiratory infection, unspecified; A63.0 Anogenital (venereal) warts; Z79.620 Long term (current) use of immunosuppressive biologic; Z79.51 Long term (current) use of inhaled steroids; Z79.899 Other long term (current) drug therapy; F17.210 Nicotine dependence, cigarettes, uncomplicated; Z98.890 Other specified postprocedural states
CPT/HCPCS: 45378; J2704

== ENCOUNTER → 2024-06-05 07:50 | Outpatient (BNV) | payer OTHER, SELFPAY | PROVIDERS: PCP Nurse Practitioner Family; Visit Provider Internal Medicine | DX: Z12.11 Encounter for screening for malignant neoplasm of colon (principal); K64.8 Other hemorrhoids; K57.30 Diverticulosis of large intestine without perforation or abscess without bleeding | CPT/HCPCS: 45378 ==

== ENCOUNTER 2024-11-07 12:28 | Outpatient (AMB) | payer OTHER, SELFPAY ==
--- NOTE | 2024-11-07 13:42 | AM.OFFWIN_ITS ---
Intake Vital Signs 11/07/24 13:48 Height 5 ft 9 in Weight 184 lb 6 oz BMI 27.2 BP 122/74 Blood Pressure Location Lt brachial Position Sitting Pulse 74 Pulse Source Pulse Oximeter Temp 97.5 F Temp Source Oral Pulse Oximetry (%) 100 Oxygen Delivery Method Room Air Intake Visit Reasons: EP-rt hand/wrist pain from a fall Intake Note: Patient here for right hip and wrist pain after a fall at a store. Patient Tobacco Use Status: Former Tobacco user Allergies Seasonal Allergies Allergy (Mild, Verified 11/07/24 13:43) Unknown Do you need a note to return to daycare/school/sports/work: Yes HPI HPI Comments History of Present Illness Details History of Present Illness The patient is a 53 year old female presenting with injury due to a fall. - Approximately three hours before the c onsultation, the patient experienced a fall caused by stepping on an uneven concrete surface outside of [place]. - The patient reports significant sorene ss in the lower back, hips, hand, wrist, and elbow subsequent to the fall. - These areas of concern, particularly t he hand and wrist, are causing difficulty with movement, albeit without suspecting fractures as mobility is retained. - Pain descriptions include general sore ness, with moments of sharpness or tingling during specific movements. - The patient has not taken any analgesi cs, opting to refrain from medication. - A review of recent kidney function melina ts demonstrated normal results, with no history of renal issues. Physical Exam General: Cooperative, healthy appearing, comfortable, no acute distress and well developed Orientation: Patient oriented x3 Limitations: No limitations Head: Normal to inspection Ears: Hearing grossly normal bilaterally Nose: Normal external nose present Face and sinus: Normal facial exam Eyes: Appearance normal, both eyes and all related structures Neck: Normal visual inspection and Yes full ROM Respiratory: Normal respiratory effort and able to speak in complete sentences. Skin: No rashes or lesions noted Neuro: Patient oriented x3 Extremities: Tenderness noted in the right sided lower back and right buttocks, hips, and left arm. Soreness in the wrist and hand, with the ability to move but with pain. Elbow movement is possible but sore. No numbness or tingling repo rted, except for some tingling and sharp pain if moved the wrong way. Shoulders are sore but functional. [facility] Medical History HIV (human immunodeficiency virus infection) Dyslipidemia Nicotine dependence, cigarettes, uncomplicated Warts, genital JANA II (cervical intraepithelial neoplasia II) (~2020) History of abnormal cervical Pap smear Trigger thumb, right thumb Low back pain Surgical History History of bunionectomy of right great toe History of thumb surgery History of loop electrical excision procedure (LEEP) Family History Mother Breast CA Son Mental health disorder Social History Housing: Condominium Are you a primary home care coordinator to a significant other at home: No Do you presently have visiting nurse or other home services: No Alcohol intake: current Alcohol intake frequency: holidays/special occasions only Patient Tobacco Use Status: Former Tobacco user Tobacco use type: Cigarette Years Smoked: onset 26yo, 1ppd x 27yrs, now 1-2cig/day - 20+PYH e-Cigarette/Vaping Use: Never Used Second Hand Smoke Exposure: No Substance Use Type: Marijuana Current occupational status: employed Current occupation: rt handed Sexual orientation: Straight/Heterosexual Gender identity: Female Cognitive needs: No Hearing needs: No Vision needs: No Female Reproductive History Menstrual Age of Menarche: 15 Review of Systems Const All systems reviewed & are unremarkable except as noted in HPI and below Physical Exam Vital Signs: Last Vital Signs Temp 97.5 F 11/07/24 13:48 Pulse 74 11/07/24 13:48 BP 122/74 11/07/24 13:48 Pulse Ox 100 11/07/24 13:48 Oxygen Delivery Method Room Air 11/07/24 13:48 BMI result Body Mass Index 27.2 Extrem Right upper extremity: elbow/forearm Details: normal to inspection and tenderness (very slight TTP with full ROM) Location: of the lateral epicondyle and of the medial epicondyle; no swelling, no abrasions, no lacerations and no ecchymosis, wrist Details: normal to inspection, normal ROM and normal vascular exam; no swelling and Extremity exam: right hand Details: normal to inspection, neuromotor exam normal, neurosensory exam normal, tendon exam normal, tenderness Location: of the 5th digit Location: involving the entire digit; not of the dorsal hand, not of the palm, not of the thumb, not of the 2nd digit, not of the 3rd digit and not of the 4th digit, normal ROM of fingers and abrasion Location: of the 5th digit Location: at the DIP joint; no unusual warmth, no swelling, no lacerations and no ecchymosis Assessment & Plan Assessment & Plan (1) Fall: Code(s): W19.XXXA - Unspecified fall, initial encounter Qualifiers: Encounter type: initial encounter Qualified Code(s): W19.XXXA - Unspecified fall, initial encounter Plan: To address the injuries sustained from the fall, x-rays will be conducted on the hand and wrist, with emphasis on the scaphoid bone to confirm the absence of fr actures. I will prescribe naproxen for its anti-inflammatory properties and a muscle relaxant, cautioning that the latter may cause drowsiness. A Velcro splint may be provided if no fractures are found, serving to immobilize the wrist.. All prescriptions are transmitted to [facility]. Following the x-rays, further assessment will be done to ensure comprehensive care and appropriate management of the patient's condition. My interpretation of they wrist and hand x-ray showed no acute fracture or dislocation. We put a splint on the 5th digit as well as supportive wrist brace, advised to use for the next 2-3 days and then slowly wean herself off. If no improvement in her symptoms gradually over the next 1-2 weeks, she should follow up with her PCP. Patient was informed and verbally consented to the use of an ambient scribe for clinic note documentation during this visit. (2) Hand pain, right: Code(s): M79.641 - Pain in right hand Plan: as above (3) Wrist pain, right: Code(s): M25.531 - Pain in right wrist Plan: as above (4) Finger sprain: Code(s): S63.619A - Unspecified sprain of unspecified finger, initial encounter Qualifiers: Encounter type: initial encounter Finger: little finger Sprain of finger site: unspecified site Laterality: right Qualified Code(s): S63.616A - Unspecified sprain of right little finger, initial encounter Plan: as above Orders: Orders XR hand RT min 3V Today M25.531 - Pain in right wrist, M79.641 - Pain in right hand, W19.XXXA - Unspecified fall, initial encounter Medications: New cyclobenzaprine 5 mg PO Q8H PRN 15 tabs 0RF Muscle Spasm naproxen 500 mg PO Q12H PRN 20 tabs 0RF pain Coding Level of Care Code Est Pt Level 4 (39015) Diagnoses Fall, initial encounter W19.XXXA Encounter type: initial encounter Hand pain, right M79.641 Wrist pain, right M25.531 Sprain of right little finger, unspecified site of digit, initial encounter S63.616A Encounter type: initial encounter Finger: little finger Sprain of finger site: unspecified site Laterality: right
[2024-11-07 13:48] VITALS: BP 122/74; PULSE 74; TEMP 36.4; O2SAT 100; BMI 27.2
== END 2024-11-07 15:44 | disposition home or self-care (01) ==
PROVIDERS: PCP Nurse Practitioner Family; Visit Provider Physician Assistant
DX: M79.641 Pain in right hand (principal); W19.XXXA Unspecified fall, initial encounter; M25.531 Pain in right wrist; S63.616A Unspecified sprain of right little finger, initial encounter

== ENCOUNTER 2024-11-07 12:28 | Outpatient (REF) | payer OTHER, SELFPAY ==
--- NOTE | ~2024-11-07 | XR_ITS ---
EXAMINATION: XR HAND/WRIST, RIGHT CLINICAL INFORMATION: M25.531 - Pain in right wrist COMPARISON: July 15, 2021 TECHNIQUE: PA, lateral, scaphoid and oblique views of the right hand and wrist. FINDINGS: Carpal bones are intact. Distal radius and ulna are intact. Metacarpal bones are intact. Phalanges of the digits are intact. No subcutaneous emphysema. No metallic or radiopaque foreign body. XR/XR hand wrist RT IMPRESSION: No acute fracture or dislocation. No osteoarthrosis or rheumatoid arthritic changes. Electronically signed by: Desmond Mosqueda MD 11/07/2024 02:34 PM JOHN PAUL
== END 2024-11-07 12:29 | disposition home or self-care (01) ==
LOC: HO.HMGCX 12:28
PROVIDERS: PCP Nurse Practitioner Family; Visit Provider Physician Assistant
DX: S63.616A Unspecified sprain of right little finger, initial encounter (principal); M25.531 Pain in right wrist; W19.XXXA Unspecified fall, initial encounter; Y93.9 Activity, unspecified; Y92.9 Unspecified place or not applicable; Y99.9 Unspecified external cause status
CPT/HCPCS: 73110; 73130; 99212

== ENCOUNTER → 2024-11-07 14:07 | Outpatient (BNV) | payer OTHER, SELFPAY | PROVIDERS: PCP Nurse Practitioner Family; Visit Provider Radiology Diagnostic Radiology | DX: M79.641 Pain in right hand (principal) | CPT/HCPCS: 73110; 73130 ==

== ENCOUNTER 2024-11-15 08:49 | Outpatient (AMB) | payer OTHER, SELFPAY ==
--- NOTE | 2024-11-15 10:14 | MHC.OFFWIV ---
Intake Vital Signs 11/15/24 10:20 Weight 183 lb 6 oz BP 130/100 H Blood Pressure Location Lt brachial Position Sitting Pulse 59 Pulse Source Pulse Oximeter Pulse Oximetry (%) 96 Oxygen Delivery Method Room Air Intake Visit Reasons: EP pain in rt pinky finger, arm(car) [phone] Intake Note: Patient here because she had a fall last week and is now having right hand/arm pain. Patient Tobacco Use Status: Former Tobacco user Allergies Seasonal Allergies Allergy (Mild, Verified 11/15/24 10:15) Unknown Do you need a note to return to daycare/school/sports/work: No HPI HPI Comments History of Present Illness Details History of Present Illness - The patient is a 53-year-old female presenting with right wrist pain following a fall 8 days ago.This is her 2nd visit to the [facility]. - After tripping over uneven pavement, she experienced a deep, persistent pain extending from the wrist. - Imaging at her 1st visit showed no fractures or dislocations, leaving a diagnosis of wrist sprain. She was told to rest it, given a brace and to take naproxen and use ice. - Functional limitation includes inability to fully squeeze the hand or make a fist. 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 - Use of a brace aggravated symptoms, and naproxen has been partially helpful. - Recommended treatment entails rest, icing, and regular naproxen dosing, which she finds hard to comply with due to occupational demands. She is a single mom and cannot take time off work. Physical Exam General: Cooperative, healthy appearing, comfortable, no acute distress and well developed Orientation: Patient oriented x3 Limitations: none Head: Normal to inspection Ears: Hearing grossly normal bilaterally Nose: Normal external nose present Face and sinus: Normal facial exam Eyes: Appearance normal, both eyes and all related structures Neck: Normal visual inspection and Yes full ROM Respiratory: Normal respiratory effort and able to speak in complete sentences. Clear to auscultation bilaterally Cardiovascular: Regular rate and rhythm. Normal S1 and S2 Skin: No rashes or lesions noted Neuro: Patient oriented x3 Extremities: as below [facility] Medical History HIV (human immunodeficiency virus infection) Dyslipidemia Nicotine dependence, cigarettes, uncomplicated Warts, genital JANA II (cervical intraepithelial neoplasia II) (~2020) History of abnormal cervical Pap smear Trigger thumb, right thumb Low back pain Surgical History History of bunionectomy of right great toe History of thumb surgery History of loop electrical excision procedure (LEEP) Family History Mother Breast CA Son Mental health disorder Social History [facility]: [facility] Are you a primary restorative care technician to a significant other at home: No Do you presently have visiting nurse or other home services: No Alcohol intake: current Alcohol intake frequency: holidays/special occasions only Patient Tobacco Use Status: Former Tobacco user Tobacco use type: Cigarette Years Smoked: onset 26yo, 1ppd x 27yrs, now 1-2cig/day - 20+PYH e-Cigarette/Vaping Use: Never Used Second Hand Smoke Exposure: No Substance Use Type: Marijuana Current occupational status: employed Current occupation: rt handed Sexual orientation: Straight/Heterosexual Gender identity: Female Cognitive needs: No Hearing needs: No Vision needs: No Female Reproductive History Menstrual Age of Menarche: 15 Review of Systems Const All systems reviewed & are unremarkable except as noted in HPI and below Physical Exam Vital Signs: Last Vital Signs Pulse 59 11/15/24 10:20 BP 130/100 H 11/15/24 10:20 Pulse Ox 96 11/15/24 10:20 Oxygen Delivery Method Room Air 11/15/24 10:20 Extrem General: Yes normal to inspection Right upper extremity: normal to inspection, elbow/forearm Details: normal to inspection, tenderness (slight) Location: of the mid-shaft forearm and normal ROM; no swelling, wrist Details: normal to inspection, tenderness Location: of the distal ulna, normal ROM and normal vascular exam; no swelling, no unusual warmth, no abrasions, no lacerations, no ecchymosis and no deformity and Extremity exam: right hand Details: normal to inspection, 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), neurosensory exam normal, tendon exam normal, tenderness Location: of the dorsal hand Location: of the ulnar aspect, vascular exam Details: normal capillary refill, abnormal ROM of finger (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 internship strength) Details: unable to flex Location: of the 4th digit and of the 5th digit and abrasion (0.5cm healing wound on dorsal aspect, no signs of infection noted) Location: of the 5th digit; no unusual warmth, no swelling and no ecchymosis Assessment & Plan Assessment & Plan (1) Right wrist sprain: Code(s): S63.501A - Unspecified sprain of right wrist, initial encounter Qualifiers: Encounter type: subsequent encounter Qualified Code(s): S63.501D - Unspecified sprain of right wrist, subsequent encounter Plan: an The current clinical assessment supports a diagnosis of a wrist sprain, secondary to a fall with resulting right wrist pain and functional limitation. Management involves naproxen administration every 12 hours for several days, encouraging adherence to reduce inflammation and promote healing. Patient must understand the importance of rest for recovery, and a referral to orthopedics has been initiated for further evaluation if symptoms persist. The recommendation includes using compression through wrapping rather than a brace, which caused discomfort. SHAY wrapped right mid hand to mid forearm for pt. Orthopedic follow-up is intended in approximately two weeks to ascertain recovery status and adjust treatment if necessary. Patient was informed and verbally consented to the use of an ambient scribe for clinic note documentation during this visit. Orders: Referrals Orthopedics Referral M25.531 - Pain in right wrist, M79.641 - Pain in right hand Coding Level of Care Code Est Pt Level 4 (52623) Diagnoses Sprain of right wrist, subsequent encounter S63.501D Encounter type: subsequent encounter
[2024-11-15 10:20] VITALS: BP 130/100; PULSE 59; O2SAT 96
== END 2024-11-15 10:37 | disposition home or self-care (01) ==
PROVIDERS: PCP Nurse Practitioner Family; Visit Provider Physician Assistant
DX: S63.501D Unspecified sprain of right wrist, subsequent encounter (principal)

== ENCOUNTER → 2024-11-15 08:49 | Outpatient (BNVA) | payer OTHER, SELFPAY | PROVIDERS: PCP Nurse Practitioner Family; Visit Provider Physician Assistant | DX: S63.501D Unspecified sprain of right wrist, subsequent encounter (principal) | CPT/HCPCS: 99212 ==

== ENCOUNTER 2024-12-05 08:07 | Outpatient (REF) | payer OTHER, SELFPAY ==
--- NOTE | ~2024-12-05 | XR_ITS ---
CLINICAL HISTORY: M25.521 - Pain in right elbow 3 view right elbow Comparison: None Findings: Bones intact. No dislocations. No significant arthritic change or erosions. No joint effusion. No radiopaque foreign body. Mild posterior elbow soft tissue swelling. IMPRESSION: 1. No acute fracture This document has been electronically signed by: Kel Barragan MD on 12/05/2024 21:02:35
== END 2024-12-05 08:08 | disposition home or self-care (01) ==
LOC: HO.HOSX 08:07
DX: M25.521 Pain in right elbow (principal); M77.11 Lateral epicondylitis, right elbow; R20.0 Anesthesia of skin; R20.2 Paresthesia of skin; M79.641 Pain in right hand
CPT/HCPCS: 73080; 99202

== ENCOUNTER 2024-12-05 11:38 | Outpatient (AMB) | payer OTHER, SELFPAY ==
--- NOTE | 2024-12-05 12:04 | A.OFFVIS_ITS ---
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 Patient states that she had a fall a few weeks ago. Has tried lidocaine patches and warm water and heating pad with mild relief. Patient reports/denies numbness and tingling? Reports pain on the ulnar aspect of the hand and wrist. 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 Hx of right thumb trigger release about a year ago. Right wrist/hand x-ray 11/07/24 IMPRESSION: No acute fracture or dislocation. No osteoarthrosis or rheumatoid arthritic changes. 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 Patient states that she had a fall a few weeks ago. Has tried lidocaine patches and warm water and heating pad with mild relief. Patient reports/denies numbness and tingling? Reports pain on the ulnar aspect of the hand and wrist. 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 Hx of right thumb trigger release about a year ago. Right wrist/hand x-ray 11/07/24 IMPRESSION: No acute fracture or dislocation. No osteoarthrosis or rheumatoid arthritic changes. [facility] Medical History HIV (human immunodeficiency virus infection) Dyslipidemia Nicotine dependence, cigarettes, uncomplicated Warts, genital JANA II (cervical intraepithelial neoplasia II) (~2020) History of abnormal cervical Pap smear Trigger thumb, right thumb Low back pain Surgical History History of bunionectomy of right great toe History of thumb surgery History of loop electrical excision procedure (LEEP) Family History Mother Breast CA Son Mental health disorder Social History (Updated 12/05/24 @ 12:09 by Nick Draper) Housing: Condominium Are you a primary pediatric acute care unit nurse to a significant other at home: No Do you presently have visiting nurse or other home services: No Alcohol intake: current Alcohol intake frequency: holidays/special occasions only Patient Tobacco Use Status: Former Tobacco user Tobacco use type: Cigarette Years Smoked: onset 26yo, 1ppd x 27yrs, now 1-2cig/day - 20+PYH e-Cigarette/Vaping Use: Never Used Second Hand Smoke Exposure: No Substance Use Type: Marijuana Current occupational status: employed Current occupation: [employer]/ right hand dominant Sexual orientation: Straight/Heterosexual Gender identity: Female Cognitive needs: No Hearing needs: No Vision needs: No Female Reproductive History Menstrual Age of Menarche: 15 Review of Systems Const All systems reviewed & are unremarkable except as noted in HPI and below Physical Exam Vital Signs: BMI result Body Mass Index 27.2 Extrem Other: Right hand exam Patient is alert, oriented, and in no acute distress. Neuro: Normal sensation of the tips of all digits of the right hand at this time Vascular: Cap refill brisk Pain: Patient reports discomfort with range of motion of the right hand, particularly in the ring and small fingers No Tenderness to palpation about the right hand ROM: With encouragement, patient was able to make a full closed fist and extend all digits of the right hand fully Skin: No lacerations or abrasions. General: No ecchymosis, erythema, or evidence of infection. Psych: Appears grossly normal Affect normal Attitude cooperative Right elbow exam Patient's right elbow normal to inspection No edema, erythema, ecchymosis noted No lacerations, abrasions, open areas No evidence of infection Patient reports mild tenderness to palpation about the lateral epicondyle of the right elbow No tenderness to palpation of the medial epicondyle or olecranon process Patient is able to flex and extend the right elbow fully and without difficulty Pronation and supination full and intact Positive Cozen's test Negative reverse Cozen's test Distal sensation intact Capillary refill brisk Results Reviewed Results Reviewed: X-rays obtained in the office today and independently reviewed by me, Mars Benavides PA-C, demonstrate no fracture or acute bony abnormality of the right elbow. Assessment & Plan Assessment & Plan (1) Lateral epicondylitis of right elbow: Code(s): M77.11 - Lateral epicondylitis, right elbow Category: Medical (2) Numbness and tingling of right hand: Code(s): R20.0 - Anesthesia of skin; R20.2 - Paresthesia of skin Category: Medical (3) Hand pain, right: Code(s): M79.641 - Pain in right hand Category: Medical Plan 1. Numbness and tingling of right hand EMG and nerve conduction study ordered today to assess the health of the nerves of the right upper extremity Patient was amenable to this plan Follow-up after EMG and nerve conduction study for results review and discussion of further treatment options if indicated 2. Lateral epicondylitis of right elbow Referred to occupational therapy for treatment of this Patient is educated that if in 6-8 weeks after OT she is still experiencing very significant pain, she can call us for injection Patient was amenable to this plan Patient will follow-up as needed with any acute concerns Orders: Orders NE electromyogram (EMG) Today R20.0 - Anesthesia of skin, R20.2 - Paresthesia of skin NE nerve conduction velocity Today R20.0 - Anesthesia of skin, R20.2 - Paresthesia of skin OT Evaluation and Treatment Today M77.11 - Lateral epicondylitis, right elbow XR elbow RT min 3V Today M25.521 - Pain in right elbow Coding Level of Care Code New Pt Level 3 (58709) Complex EM visit Add On G2211 Diagnoses Lateral epicondylitis of right elbow M77.11 Numbness and tingling of right hand R20.0; R20.2 Hand pain, right M79.641
[2024-12-05 12:09] VITALS: BMI 27.2
== END 2024-12-05 12:21 | disposition home or self-care (01) ==
PROVIDERS: PCP Nurse Practitioner Family
DX: M77.11 Lateral epicondylitis, right elbow (principal); R20.0 Anesthesia of skin; R20.2 Paresthesia of skin; M79.641 Pain in right hand
CPT/HCPCS: 99203; G2211

== ENCOUNTER → 2024-12-05 11:45 | Outpatient (BNV) | payer OTHER, SELFPAY | PROVIDERS: Visit Provider Radiology Diagnostic Radiology | DX: M25.521 Pain in right elbow (principal) | CPT/HCPCS: 73080 ==

== ENCOUNTER 2025-01-31 14:40 | Outpatient (REF) | payer OTHER, SELFPAY ==
--- NOTE | 2025-01-31 14:43 | EMG_ITS ---
Chief complaint: Right elbow pain but denies numbness Reason for referral: Evaluate for ulnar neuropathy Referred by: Mars HAWK Procedure done: Right upper extremity NCS/EMG Precautions and/or limitations: None The limb temperature was monitored continuously and remained between 32-36 degrees C during the performance of the NCS. Ulnar motor NCS was performed with moderate elbow flexion between 70-90 degrees, with across-elbow distance of 10 cm. Nerve Conduction Studies Anti Sensory Summary Table ?Stim Site NR Onset (ms) Norm Onset (ms) Peak (ms) Norm Peak (ms) O-P Amp (?V) Norm O-P Amp Site1 Site2 Delta-0 (ms) Dist (cm) Soy (m/s) Norm Soy (m/s) Right Median Anti Sensory (2nd Digit) Wrist ? 2.5 3.3 <3.6 27.2 >10 Wrist 2nd Digit 2.5 14.0 56 Right Ulnar Anti Sensory (5th Digit) Wrist ? 2.4 3.2 <3.7 27.8 >15.0 Wrist 5th Digit 2.4 14.0 58 Motor Summary Table ?Stim Site NR Onset (ms) Norm Onset (ms) O-P Amp (mV) Norm O-P Amp iAmp (mV) Amp (1st) (%) Site1 Site2 Delta-0 (ms) Dist (cm) Soy (m/s) Norm Soy (m/s) Right Median Motor (Abd Poll Brev) Wrist ? 3.6 <3.9 11.2 >4.5 12.8 100.0 Elbow Wrist 4.0 21.0 53 >45 Elbow ? 7.6 11.7 13.5 104.5 Right Ulnar Motor (Abd Dig Minimi) Wrist ? 2.7 <3.0 7.6 >5 8.9 100.0 B Elbow Wrist 3.7 20.0 54 >45 B Elbow ? 6.4 6.8 8.1 89.5 A Elbow B Elbow 1.1 10.0 91 >45 A Elbow ? 7.5 6.9 8.2 90.8 Comparison Summary Table ?Stim Site NR Peak (ms) Norm Peak (ms) P-T Amp (?V) Site1 Site2 Delta-P (ms) Norm Delta (ms) Right Median/Radial Dig I Comparison (Digit 1 - 10cm) Median ? 2.9 <2.9 47.5 Median Radial 0.4 Radial ? 2.5 <2.8 3.1 EMG ?Side Muscle Nerve Root Ins Act Fibs Psw Amp Dur Poly Recrt Int Pat Comment Right 1stDorInt Ulnar C8-T1 Nml Nml Nml Nml Nml 0 Nml Complete Right FlexCarRad Median C6-7 Nml Nml Nml Nml Nml 0 Nml Complete Right Biceps Musculocut C5-6 Nml Nml Nml Nml Nml 0 Nml Complete Right Triceps Radial C6-7-8 Nml Nml Nml Nml Nml 0 Nml Complete Right Deltoid Axillary C5-6 Nml Nml Nml Nml Nml 0 Nml Complete FINDINGS: All motor and sensory nerves tested showed normal latencies, amplitudes and conduction velocities. Concentric needle EMG was performed in selected muscles of the right upper extremity. Study did not reveal signs of electric abnormalities as shown in the table above. IMPRESSION: 1. This is a normal study. 2. There is no electrodiagnostic evidence for median neuropathy, ulnar neuropathy, brachial plexopathy, or cervical radiculopathy. Thank you for your kind referral. Tara Traore MD, EVELYN Board Certified, [place] Board of Physical Medicine and Rehabilitation (ABPMR) Board Certified, [place] Board of Electrodiagnostic Medicine (ABEM) [place] [id number] [facility]
== END 2025-01-31 14:41 | disposition home or self-care (01) ==
LOC: HO.NEURO 14:40
PROVIDERS: PCP Nurse Practitioner Family
DX: R20.0 Anesthesia of skin (principal); R20.2 Paresthesia of skin
CPT/HCPCS: 95860; 95886; 95909

== ENCOUNTER → 2025-01-31 14:43 | Outpatient (BNV) | payer OTHER, SELFPAY | PROVIDERS: PCP Nurse Practitioner Family; Visit Provider Physical Medicine & Rehabilitation | DX: M25.521 Pain in right elbow (principal) | CPT/HCPCS: 95886; 95909 ==

== ENCOUNTER 2025-02-14 10:10 | Outpatient (AMB) | payer OTHER, SELFPAY ==
--- NOTE | 2025-02-14 10:13 | A.OFFPC_ITS ---
Vital Signs 02/14/25 10:17 Height 5 ft 9 in Weight 185 lb 6 oz BMI 27.4 BP 120/80 Blood Pressure Location Rt brachial Position Sitting Respiration 18 Pulse 70 Pulse Source Pulse Oximeter Temp 98 F Temp Source Oral Pulse Oximetry (%) 98 Oxygen Delivery Method Room Air Intake Visit Reasons: Annual PE Intake Note: Pt is here today for her annual physical. Allergies Seasonal Allergies Allergy (Mild, Verified 02/14/25 10:32) Unknown Medication List - Last Reconciled 02/14/25 by Thad Bills, [facility] [id number] 600-50-300 mg (Triumeq) 1 tab PO DAILY albuterol sulfate 90 mcg/actuation 1 - 2 puffs inhalation Q4-6H PRN naproxen 500 mg PO Q12H PRN Tobacco use date assessed: 02/14/25 Dental Screening Dental Screen Date: 02/14/25 Did you have a dental visit in the last 12 months?: Yes Did you have a dental problem in the last 6 months where you did not have access to dental care?: No Was dental information given to patient?: Patient has dentist HPI Annual PE HPI Details History of Present Illness The patient is a 54-year-old female presenting with an annual physical examination. She has a history of HIV infection, which is controlled, evidenced by a low viral load. Additionally, she has vitamin D deficiency. She is enrolled in a low dose CAT scan program to monitor for any lung-related issues due to her smoking history. Menopausal symptoms including hot flashes, frustrations, and diaphoresis are present, and she intends to discuss these symptoms with her pharmacy director shortly. The patient adheres to regular health maintenance activities, including colon cancer screening and mammography. She reports overall good health, denying any significant cardiorespiratory, gastrointestinal, or psychological concerns. Laboratory tests have been ordered for assessment in the near future. Health Maintenance - Participating in low dose CAT scan pro gram for lung monitoring due to smoking history. - Regular mammograms performed. - Colon cancer screening up to date. - Planned consultation with a gynecologi st for menopausal symptoms. - Laboratory tests ordered but results p ending. Social History - Participates regularly in a low dose C AT scan program due to smoking history. - No other social history details discus sed. Review of Systems - Cardiovascular: Denies chest pain. - Respiratory: Denies shortness of breat h. - Gastrointestinal: Denies abdominal terry n, blood in stool, constipation, and diarrhea. - Psychological: Denies homicidal or vazquez cidal ideation. - General: Reports hot flashes, intermit tent frustrations, and diaphoresis. Physical Exam General: Cooperative, healthy appearing, comfortable, no acute distress and well developed Orientation: Patient oriented x3 Limitations: No limitations Head: Normal to inspection Ears: Hearing grossly normal bilaterally Nose: Normal external nose present Face and sinus: Normal facial exam Eyes: Appearance normal, both eyes and all related structures Neck: Normal visual inspection and Yes full ROM Respiratory: Normal respiratory effort and able to speak in complete sentences. Clear to auscultation bilaterally Cardiovascular: Regular rate and rhythm. Normal S1 and S2 GI: Normal to inspection. Soft to palpation and nontender Skin: No rashes or lesions noted Neuro: Patient oriented x3 Extremities: Normal to inspection Results Plan HIV infection management will continue with monitoring of her low viral load. Current management seems effective, but ongoing adherence is essential. Vitamin D levels will be addressed through potential supplementation. Continued participation in the low dose CAT scan program is recommended due to her history of smoking. She will discuss her menopausal symptoms with her pharmacy director for appropriate management. Routine health screenings are maintained, and she's advised to return for follow-up upon available lab results. Discussion Notes In our discussion, the patient and I reviewed her management of HIV infection, emphasizing the importance of maintaining her current regimen to keep her viral load low. We explored the benefits of her enrollment in a low dose CAT scan program to observe any lung implications related to smoking. I explained the necessity of routinely checking vitamin D levels to decide on potential supplement needs. We also discussed the need to consult her pharmacy director for management of menopausal symptoms, which could enhance her everyday well-being. Laboratory tests were ordered today, and once the results are available, we will evaluate her status further. I encouraged her to reach out if any new symptoms or concerns arise. Patient Instructions - Continue with current HIV management a nd adhere to prescribed regimen. - Participate in low dose CAT scan progr am as recommended. - Consult with your pharmacy director about m enopausal symptoms. - Maintain routine health screenings. - Wait for lab results and follow up as advised. [facility] Medical History HIV (human immunodeficiency virus infection) Dyslipidemia Nicotine dependence, cigarettes, uncomplicated Warts, genital JANA II (cervical intraepithelial neoplasia II) (~2020) History of abnormal cervical Pap smear Trigger thumb, right thumb Low back pain Surgical History History of bunionectomy of right great toe History of thumb surgery History of loop electrical excision procedure (LEEP) Family History Mother Breast CA Son Mental health disorder Social History Housing: Condominium Are you a primary landcare officer to a significant other at home: No Do you presently have visiting nurse or other home services: No Alcohol intake: current Alcohol intake frequency: holidays/special occasions only Patient Tobacco Use Status: Former Tobacco user Tobacco use type: Cigarette Years Smoked: onset 26yo, 1ppd x 27yrs, now 1-2cig/day - 20+PYH e-Cigarette/Vaping Use: Never Used Second Hand Smoke Exposure: No Substance Use Type: Marijuana Current occupational status: employed Current occupation: [employer]/ right hand dominant Sexual orientation: Straight/Heterosexual Gender identity: Female Cognitive needs: No Hearing needs: No Vision needs: No Female Reproductive History Menstrual Age of Menarche: 15 Questionnaire PHQ-9 Over the last 2 weeks, how often have you been bothered by any of the following problems? 1. Little interest or pleasure in doing things: not at all 2. Feeling down, depressed, or hopeless: not at all 3. Trouble falling or staying asleep, or sleeping too much: not at all 4. Feeling tired or having little energy: not at all 5. Poor appetite or overeating: not at all 6. Feeling bad about yourself - or that you are a failure or have let yourself or your family down: not at all 7. Trouble concentrating on things, such as reading the newspaper or watching television: not at all 8. Moving or speaking so slowly that other people could have noticed. Or the opposite - being so fidgety or restless that you have been moving around a lot more than usual: not at all 9. Thoughts that you would be better off or of hurting yourself in some way: not at all Total score: 0 Depression Screening Interpretation: Negative Depression Screening Done: Yes 77617 - PHQ-9 Billing: Yes Source: Developed by Drs. Carlyle Che, Marilee Fernando, Ayo Grant and colleagues, with an educational dominique from [employer]. Thrive Questionnaire Date Thrive assessed: 02/14/25 I am a: Patient What is your living situation today?: I have a steady place to live Within the past 12 months, did the food you bought not last and you didn't have the money to get more?: Never true Within the past 12 months, did you worry whether your food would run out before you got money to buy more?: Never true Do you have trouble paying for medicines?: No Do you have trouble getting transportation to medical appointments?: No Do you have trouble paying your heating and electricity bill?: No Do you have trouble taking care of your child, family member or friend?: No Do you have trouble with day-to-day activities such as bathing, preparing meals, shopping, managing finances, etc.?: No Are you currently unemployed and looking for a job?: No Are you interested in more education?: No Currently or been in a relationship where the following occur: No concerns reported THRIVE Score: 0 AUDIT C Alcohol Use Questionnaire (AUDIT-C) 1. How often do you have a drink containing alcohol?: Monthly or less 2. How many drinks containing alcohol do you have on a typical day when you are drinking?: 1 or 2 3. How often do you have six or more drinks on one occasion?: Never Total Score: 1 Score Reviewed/Action Taken: Yes LANCE-7 AMB Questionnaire LANCE-7 Date LANCE - 7 assessed: 02/14/25 Feeling nervous, anxious, or on edge: 0 = Not at all Not being able to stop or control worryin = Not at all Worrying too much about different things: 0 = Not at all Trouble relaxin = Not at all Being so restless that it is hard to sit still: 0 = Not at all Becoming easily annoyed or irritable: 0 = Not at all Feeling afraid as if something awful might happen: 0 = Not at all Total LANCE-7 score (0-4 normal; 5-9 mild; 10-14 moderate; 15-21 severe): 0 Source: Developed by Drs. Carlyle Che, Marilee Fernando, Ayo Grant and colleagues, with an educational dominique from [employer]. LANCE-7 Assessment Billing LACNE-7 Assessment Tool: LANCE-7 Assessment 84401 Physical exam (Primary Care) Vital Signs: Last Vital Signs Temp 98 F 02/14/25 10:17 Pulse 70 02/14/25 10:17 Resp 18 02/14/25 10:17 BP 120/80 02/14/25 10:17 Pulse Ox 98 02/14/25 10:17 Oxygen Delivery Method Room Air 02/14/25 10:17 BMI result Body Mass Index 27.4 Tobacco/Smoking Status: Tobacco use Status Tobacco use date assessed 02/14/25 02/14/25 10:33 Patient Tobacco Use Status Former Tobacco user 02/14/25 10:14 Tobacco use type Cigarette 02/14/25 10:14 e-Cigarette/Vaping Use Never Used 02/14/25 10:14 PHQ-9: PHQ-9 Score PHQ-9: Total score 0 02/14/25 10:19 Depression Screening Interpretation: Negative Thrive Assessment: Date of Thrive Assessment Date Thrive assessed 02/14/25 02/14/25 10:19 Currently or been in a relationship where the following occur: No concerns reported Coding Level of Care Code Est Pt Prev Care 40-64y(26365) Diagnoses Physical exam Z00.00 Vitamin D deficiency E55.9 Additional Codes LANCE-7 Assessment Billing - LANCE-7 Assessment Tool: LANCE-7 Assessment 81950 ([id number]) PHQ-9 - 13014 - PHQ-9 Billing: Yes ([id number]) Assessment & Plan Assessment & Plan (1) Physical exam: Code(s): Z00.00 - Encounter for general adult medical examination without abnormal findings Category: Medical (2) Vitamin D deficiency: Code(s): E55.9 - Vitamin D deficiency, unspecified Category: Medical Plan . Orders: Orders Complete Blood Count Auto Diff Today Z00.00 - Encounter for general adult medical examination without abnormal findings Lipid Panel Today Z00.00 - Encounter for general adult medical examination without abnormal findings Comprehensive [place]. Panel Fast Today Z00.00 - Encounter for general adult medical examination without abnormal findings TSH reflex Free T4 Today Z00.00 - Encounter for general adult medical examination without abnormal findings UA CC w/rflx Micro + Cult Today Z00.00 - Encounter for general adult medical examination without abnormal findings Vitamin D 25-OH Total Today E55.9 - Vitamin D deficiency, unspecified
[2025-02-14 10:17] VITALS: BP 120/80; PULSE 70; RESP 18; TEMP 36.6; O2SAT 98; BMI 27.4
== END 2025-02-14 11:42 | disposition home or self-care (01) ==
LOC: HO.HMCC 10:11
PROVIDERS: PCP Nurse Practitioner Family; Visit Provider Nurse Practitioner Family
DX: Z00.00 Encounter for general adult medical examination without abnormal findings (principal); E55.9 Vitamin D deficiency, unspecified; Z23 Encounter for immunization

== ENCOUNTER → 2025-02-14 10:10 | Outpatient (BNVA) | payer OTHER, SELFPAY | PROVIDERS: PCP Nurse Practitioner Family; Visit Provider Nurse Practitioner Family | DX: Z00.00 Encounter for general adult medical examination without abnormal findings (principal); Z23 Encounter for immunization; E55.9 Vitamin D deficiency, unspecified | CPT/HCPCS: 90471; 90677; 96127; 99396 ==

== ENCOUNTER 2025-03-06 08:28 | Outpatient (AMB) | payer OTHER, SELFPAY ==
--- NOTE | 2025-03-06 08:28 | MHC.OFFVIS ---
Vital Signs 03/06/25 08:34 Height 5 ft 9 in Weight 185 lb BMI 27.3 Handedness Right Intake Visit Reasons: TH EMG reveiw Intake Note: Xi is a 54 year old right hand dominant female who presents today via telephone for a EMG review of her right elbow. IMPRESSION: 1. This is a normal study. 2. There is no electrodiagnostic evidence for median neuropathy, ulnar neuropathy, brachial plexopathy, or cervical radiculopathy. Allergies Seasonal Allergies Allergy (Mild, Verified 03/06/25 08:35) Unknown HPI HPI TH EMG reveiw: Details: Xi is a 54 year old right hand dominant female who presents today via telephone for a EMG review of her right elbow. The patient reports that her numbness, tingling, and pain have all improved significantly since starting occupational therapy. No other acute complaints or concerns at this time. IMPRESSION: 1. This is a normal study. 2. There is no electrodiagnostic evidence for median neuropathy, ulnar neuropathy, brachial plexopathy, or cervical radiculopathy. [facility] Medical History HIV (human immunodeficiency virus infection) Dyslipidemia Nicotine dependence, cigarettes, uncomplicated Warts, genital JANA II (cervical intraepithelial neoplasia II) (~2020) History of abnormal cervical Pap smear Trigger thumb, right thumb Low back pain Surgical History History of bunionectomy of right great toe History of thumb surgery History of loop electrical excision procedure (LEEP) Family History Mother Breast CA Son Mental health disorder Social History Housing: Condominium Are you a primary home care coordinator to a significant other at home: No Do you presently have visiting nurse or other home services: No Alcohol intake: current Alcohol intake frequency: holidays/special occasions only Patient Tobacco Use Status: Former Tobacco user Tobacco use type: Cigarette Years Smoked: onset 26yo, 1ppd x 27yrs, now 1-2cig/day - 20+PYH e-Cigarette/Vaping Use: Never Used Second Hand Smoke Exposure: No Substance Use Type: Marijuana Current occupational status: employed Current occupation: [employer]/ right hand dominant Sexual orientation: Straight/Heterosexual Gender identity: Female Cognitive needs: No Hearing needs: No Vision needs: No Female Reproductive History Menstrual Age of Menarche: 15 Review of Systems Const All systems reviewed & are unremarkable except as noted in HPI and below Physical Exam Vital Signs: BMI result Body Mass Index 27.3 Telehealth Telehealth Telehealth Platform: Telephone Location of provider rendering services: practice address Location of patient: address on file Patient Identification confirmed using: Name, : Yes Telehealth method: voice only Patient verbally consented to treatment: Yes Patient verbally consented to billing insurance company: Yes Assessment & Plan Assessment & Plan (1) Lateral epicondylitis of right elbow: Code(s): M77.11 - Lateral epicondylitis, right elbow Category: Medical (2) Numbness and tingling of right hand: Code(s): R20.0 - Anesthesia of skin; R20.2 - Paresthesia of skin Category: Medical Plan 1. Numbness and tingling of right hand Negative EMG 2. Lateral epicondylitis of right elbow Patient appears to be recovering quite well with occupational therapy Patient is educated to continue her current course of OT until she is discharge, and to continue with her exercises after being discharged from OT Patient is amenable to this plan Follow-up as needed Coding Level of Care Code Tele Est Pt Level 3 (99329) Diagnoses Lateral epicondylitis of right elbow M77.11 Numbness and tingling of right hand R20.0; R20.2
[2025-03-06 08:34] VITALS: BMI 27.3
== END 2025-03-06 08:35 | disposition home or self-care (01) ==
LOC: HO.HOS 08:28
PROVIDERS: PCP Nurse Practitioner Family
DX: M77.11 Lateral epicondylitis, right elbow (principal); R20.0 Anesthesia of skin; R20.2 Paresthesia of skin
CPT/HCPCS: 99213

== ENCOUNTER 2025-03-12 09:26 | Outpatient (RCR) | payer OTHER, SELFPAY ==
--- NOTE | 2025-01-09 14:15 | MHC.OT.EP ---
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 She reports increased pain at the end of her long workdays. Objective findings include decreased senior logistics manager strength on the right (20#) compared to the left (45#), though elbow and wrist range of motion are within normal limits. Functional limitations are reflected in her QuickDASH score of 40.9%, indicating moderate difficulty with daily and work-related tasks. Pt would benefit from skilled OT tx for pain management, senior logistics manager strengthening, and activity modification to promote healing and prevent further strain. Frequency and Duration: The patient will be seen 2x/wk for 4 weeks Short Term Goals: Decrease elbow and writs pain <4/10 with activity Demo IND use of ergonomic techniques and adaptive strategies to reduce strain during work activities IND with use of counterforce brace Custodial Goals: Pain free elbow and wrist with daily tasks Improve R senior logistics manager strength >35# Report reduced pain and improved function with a QuickDASH score of <20% IND with HEP Treatment Plan: Therapeutic Exercise Therapeutic Activity Home Exercise Program Patient Education Ultrasound [facility]HP Soft Tissue Mobilization Kinesiotaping Electronically Signed By: Ayesha Johnson MS OTR/L Please Sign and return to therapist. Thank you once again for your referral.
--- NOTE | 2025-05-22 09:12 | MHC.OT.DC ---
[address] [phone] F: [phone] Occupational Therapy Discharge Note Patient Name: Xi Ye Provider: Mars Benavides Diagnosis: Lateral epicondylitis of right elbow Date of Evaluation: 01/09/25 Date of Discharge: 03/12/25 Treatments to Date: 12 Discharge Status: Achieved Goals Improved Function Independent with HEP Discharge Summary: Xi has demonstrated significant progress in occupational therapy and has successfully met 4 out of 5 long-term goals set on admission. 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 Additionally, her QuickDASH score has improved from 40% to 20%. She is now independent with HEP and expressed agreement with the discharge plan. Electronically Signed By: Ayesha Johnson MS OTR/L Reviewed/agree with student documentation: Therapist: Please Sign and return to therapist, thank you for your referral.
== END 2025-03-12 14:00 | disposition home or self-care (01) ==
LOC: HO.OTS 09:26
DX: M77.11 Lateral epicondylitis, right elbow (principal)
CPT/HCPCS: 97033; 97110; 97140; 97165

== ENCOUNTER 2025-04-18 08:10 | Outpatient (AMB) | payer OTHER, SELFPAY ==
--- NOTE | 2025-04-18 08:11 | MHC.OFFVIS ---
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 No complaints. Last Pap/HPV was negative in 04/15, history of JANA 2 status post LEEP in followed by JANA 1 in 2021 and negative co testing in 2022 Last Mammogram was BI-RADS 1 in 05/16 Last Colonoscopy was done in 06/16, the recommendation was to repeat in 10 years [facility] Medical History HIV (human immunodeficiency virus infection) Dyslipidemia Nicotine dependence, cigarettes, uncomplicated Warts, genital JANA II (cervical intraepithelial neoplasia II) (~2020) History of abnormal cervical Pap smear Trigger thumb, right thumb Low back pain Surgical History History of bunionectomy of right great toe History of thumb surgery History of loop electrical excision procedure (LEEP) Family History Mother Breast CA Son Mental health disorder Social History Housing: Condominium Are you a primary care professionals to a significant other at home: No Do you presently have visiting nurse or other home services: No Alcohol intake: current Alcohol intake frequency: holidays/special occasions only Patient Tobacco Use Status: Former Tobacco user Tobacco use type: Cigarette Years Smoked: onset 26yo, 1ppd x 27yrs, now 1-2cig/day - 20+PYH e-Cigarette/Vaping Use: Never Used Second Hand Smoke Exposure: No Substance Use Type: Marijuana Current occupational status: employed Current occupation: [employer]/ right hand dominant Sexual orientation: Straight/Heterosexual Gender identity: Female Cognitive needs: No Hearing needs: No Vision needs: No Female Reproductive History Menstrual Age of Menarche: 15 Total pregnancies: 2 Full term: 2 Number of Living Children: 2 Date of last pap smear: 04/07/23 (negative pap smear, negative hpv) History of abnormal pap smear: Yes Date of Mammogram: 05/01/24 (bi rad 1) Review of Systems Const All systems reviewed & are unremarkable except as noted in HPI and below Card Reports as per HPI Resp Reports as per HPI GI Reports as per HPI and Reports no additional complaints Reports as per HPI Physical Exam Vital Signs: Last Vital Signs BP 110/70 04/18/25 08:18 BMI result Body Mass Index 25.4 Const General: cooperative, healthy appearing and comfortable Chest Chest palpation & inspection: normal inspection of the chest and normal palpation of entire chest wall Breast/axilla inspection: normal inspection of the breasts and normal inspection of the axillae Breast/axilla palpation: normal palpation of the breasts, normal palpation of the axillae and no axillary lymphadenopathy Resp Effort & Inspection: normal respiratory effort Auscultation: clear to auscultation bilaterally Percussion: percussion normal Cardio Palpation: normal PMI Rate: regular rate Rhythm: regular rhythm Heart sounds: no murmurs and no rubs Peripheral pulses: Peripheral pulses 2+ throughout GI Inspection: Yes normal to inspection Palpation (GI): Soft to palpation, nontender, no guarding, not rigid and No hepatosplenomegaly present Percussion: Yes normal to percussion Auscultation: normal bowel sounds Rectal Exam - Female: deferred General: Yes bladder normal to palpation External Female Exam: No lesion Speculum Exam - Vagina: normal appearance of the vagina, normal palpation, normal vaginal discharge and not erythematous Speculum Exam - Cervix: normal appearance of the cervix and normal palpation Bimanual exam- vagina & uterus: normal bimanual exam, normal palpation, uterine size normal, bladder normal to palpation, consistency normal and normal palpation Bimanual Exam- Adnexa, other: normal adnexae, no masses and no tenderness Assessment & Plan Assessment & Plan (1) Well woman exam: Comment: JANA 2 in 2020 status post LEEP cone JANA 1 in 03/2022 Negative co testing in 04/15 Code(s): Z01.419 - Encounter for gynecological examination (general) (routine) without abnormal findings Category: Medical Plan: Co testing done. Counseled the patient about the recommended dietary allowance of 1200 mg of Calcium & 600 IU of vitamin D. Mammogram ordered. The patient was instructed to perform monthly self-breast exams and schedule annual exam in a year. All questions answered and the patient verbalized understanding. Orders: Orders MM tomosynthesis screening BI Today Z12.31 - Encounter for screening mammogram for malignant neoplasm of breast Coding Level of Care Code Est Pt Prev Care 40-64y(77536) Diagnoses Well woman exam Z01.419
[2025-04-18 08:18] VITALS: BP 110/70; BMI 25.4
== END 2025-04-18 09:02 | disposition home or self-care (01) ==
LOC: HO.HWS 08:10
PROVIDERS: PCP Nurse Practitioner Family; Visit Provider Obstetrics & Gynecology
DX: Z01.419 Encounter for gynecological examination (general) (routine) without abnormal findings (principal)
CPT/HCPCS: 99396; 99459

== ENCOUNTER 2025-04-18 08:10 | Outpatient (REF) | payer OTHER, SELFPAY ==
[2025-04-23 08:15] LABS: HPV Genotype 16 Negative (Negative); HPV Genotype 18 Negative (Negative); HPV High Risk Negative (Negative)
== END 2025-04-18 08:11 | disposition home or self-care (01) ==
LOC: HO.LNP 08:10
PROVIDERS: PCP Nurse Practitioner Family; Visit Provider Obstetrics & Gynecology
DX: Z01.419 Encounter for gynecological examination (general) (routine) without abnormal findings (principal); Z11.51 Encounter for screening for human papillomavirus (HPV); N87.1 Moderate cervical dysplasia
CPT/HCPCS: 87626; 88175; 99396

== ENCOUNTER 2025-04-23 06:57 | Outpatient (AMB) | payer OTHER, SELFPAY ==
--- NOTE | 2025-04-23 07:08 | A.OFFPC_ITS ---
Intake Visit Reasons: pre op - cataract clearance -[facility] Allergies Seasonal Allergies Allergy (Mild, Verified 04/23/25 07:13) Unknown Medication List - Last Reconciled 04/23/25 by JOLLY HallYUKO kmucnadq-abvzokqsxlil-gdepejv 600-50-300 mg (Triumeq) 1 tab PO DAILY albuterol sulfate 90 mcg/actuation 1 - 2 puffs inhalation Q4-6H PRN naproxen 500 mg PO Q12H PRN Tobacco use date assessed: 02/14/25 Dental Screening Dental Screen Date: 02/14/25 HPI pre op - cataract clearance -[facility] HPI Details History of Present Illness The patient is a 54-year-old female presenting with a preoperative evaluation for left eye cataract surgery. She reports feeling well and denies any signs or symptoms of infection. She is aware of the need to avoid NSAIDs five days to a week before the procedure. The patient has a history of Human Immunodeficiency Virus (HIV) infection and follows up with infectious disease specialists. She reports feeling great and is excited about the upcoming surgery. Review of Systems - General: Reports feeling well. Denies any signs or symptoms of infection. PE: no acute distress, pleasant. Plan The patient is cleared for left eye cataract surgery, which is scheduled around the or of this month. She is advised to avoid NSAIDs five days to a week before the procedure to minimize bleeding risk. Discussion Notes I discussed with the patient the importance of avoiding NSAIDs prior to her cataract surgery to reduce the risk of bleeding. She is aware of the surgery date and is excited about the procedure. Patient Instructions - Avoid taking NSAIDs for five days to a week before your cataract surgery. - Follow up with your infectious disease specialist as scheduled. [facility] Medical History HIV (human immunodeficiency virus infection) Dyslipidemia Nicotine dependence, cigarettes, uncomplicated Warts, genital JANA II (cervical intraepithelial neoplasia II) (~2020) History of abnormal cervical Pap smear Trigger thumb, right thumb Low back pain Surgical History History of bunionectomy of right great toe History of thumb surgery History of loop electrical excision procedure (LEEP) Family History Mother Breast CA Son Mental health disorder Social History Housing: Condominium Are you a primary care partner to a significant other at home: No Do you presently have visiting nurse or other home services: No Alcohol intake: current Alcohol intake frequency: holidays/special occasions only Patient Tobacco Use Status: Former Tobacco user Tobacco use type: Cigarette Years Smoked: onset 26yo, 1ppd x 27yrs, now 1-2cig/day - 20+PYH e-Cigarette/Vaping Use: Never Used Second Hand Smoke Exposure: No Substance Use Type: Marijuana Current occupational status: employed Current occupation: [employer]/ right hand dominant Sexual orientation: Straight/Heterosexual Gender identity: Female Cognitive needs: No Hearing needs: No Vision needs: No Female Reproductive History Menstrual Age of Menarche: 15 Questionnaire Thrive Questionnaire Date Thrive assessed: 02/14/25 LANCE-7 AMB Questionnaire LANCE-7 Date LANCE - 7 assessed: 02/14/25 Source: Developed by Drs. Carlyle Che, Marilee Fernando, Ayo Grant and colleagues, with an educational dominique from [employer]. Physical exam (Primary Care) Tobacco/Smoking Status: Tobacco use Status Tobacco use date assessed 02/14/25 04/18/25 09:01 Patient Tobacco Use Status Former Tobacco user 04/18/25 09:01 Tobacco use type Cigarette 04/18/25 09:01 e-Cigarette/Vaping Use Never Used 04/18/25 09:01 Thrive Assessment: Date of Thrive Assessment Date Thrive assessed 02/14/25 04/18/25 09:01 Telehealth Telehealth Telehealth Platform: Beisen Location of provider rendering services: practice address Location of patient: address on file Patient Identification confirmed using: Name, : Yes Telehealth method: video Patient verbally consented to treatment: Yes Patient verbally consented to billing insurance company: Yes Patient informed of any privacy concerns related to visit: Yes Minutes spent on Phone/Video with Pt.: 12 Coding Level of Care Code Tele Est Pt Level 3 (27459) Diagnoses Pre-op evaluation Z01.818 Assessment & Plan Assessment & Plan (1) Pre-op evaluation: Code(s): Z01.818 - Encounter for other preprocedural examination Category: Medical Plan .
== END 2025-04-23 07:37 | disposition home or self-care (01) ==
LOC: HO.HMCC 06:58
PROVIDERS: PCP Nurse Practitioner Family; Visit Provider Nurse Practitioner Family
DX: Z01.818 Encounter for other preprocedural examination (principal)

== ENCOUNTER 2025-05-30 08:54 | Outpatient (REF) | payer OTHER, SELFPAY ==
--- NOTE | ~2025-05-30 | MM_ITS ---
EXAMINATION: MM SCREENING DIGITAL BREAST TOMOSYNTHESIS, BILATERAL CLINICAL INFORMATION: Screening. Asymptomatic. COMPARISON: Comparison made to multiple prior, most recent May 01, 2024, and most remote August 03, 2018. TECHNIQUE: Digital breast tomosynthesis is performed in both the craniocaudal and mediolateral oblique views along with computer-aided detection (CAD). FINDINGS: BREAST COMPOSITION: The breasts are heterogeneously dense, which may obscure small masses (ACR BI-RADS breast composition Category c). BILATERAL BREASTS: No significant masses, suspicious calcifications or other abnormalities are seen in either breast. MM/MM tomosynthesis screening BI IMPRESSION: BILATERAL BREASTS: Negative, no mammographic evidence of malignancy. Normal interval follow-up is recommended in 12 months. ASSESSMENT: BI-RADS 1 - Negative RECOMMENDATION: Routine annual mammography screening. FOLLOW-UP: 1 year F/U This examination should not preclude the clinical evaluation of a suspicious palpable abnormality. This patient's information was entered into a reminder system with a target due date for their next mammogram. Electronically signed by: Keyona Miranda MD 06/08/2025 09:50 PM EDT
[2025-06-02 22:18] LABS: Quantiferon TB Gold Plus 1 NEGATIVE (NEGATIVE); TB Test (QFT) Mitogen -Nil 7.49 IU/mL; TB Test (QFT) Nil 0.03 IU/mL; TB Test (QFT) Plus TB1 -Nil 0.01 IU/mL; TB Test (QFT) Plus TB2 -Nil 0.01 IU/mL
== END 2025-05-30 08:55 | disposition home or self-care (01) ==
LOC: HO.MAMMO 08:54
PROVIDERS: PCP Nurse Practitioner Family; Referring Provider Nurse Practitioner Family; Visit Provider Obstetrics & Gynecology
DX: Z12.31 Encounter for screening mammogram for malignant neoplasm of breast (principal)
CPT/HCPCS: 36415; 77063; 77067; 86480

== ENCOUNTER → 2025-05-30 08:56 | Outpatient (BNV) | payer OTHER, SELFPAY | PROVIDERS: PCP Nurse Practitioner Family; Referring Provider Nurse Practitioner Family; Visit Provider Radiology Body Imaging | DX: Z12.31 Encounter for screening mammogram for malignant neoplasm of breast (principal) | CPT/HCPCS: 77063; 77067 ==

== ENCOUNTER 2025-08-22 07:55 | Outpatient (AMB) | payer OTHER, SELFPAY ==
--- NOTE | 2025-08-22 07:56 | AM.OFFWIN_ITS ---
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 in clinic with c/o left wrist pain for 1 month. She does work as a [employer] and believes this is related to her work. Pt asking for a referral to Orthopedics. Pt also c/o Chronic Lower back asking for Naproxen for pain relief. COUNT INCLUDES THE [facility] Medical History (Updated 08/22/25 @ 08:12 by Elham Huang NP) Low back pain Wrist pain, left HIV (human immunodeficiency virus infection) Dyslipidemia Nicotine dependence, cigarettes, uncomplicated Warts, genital JANA II (cervical intraepithelial neoplasia II) (~2020) History of abnormal cervical Pap smear Trigger thumb, right thumb Surgical History History of bunionectomy of right great toe History of thumb surgery History of loop electrical excision procedure (LEEP) Family History Mother Breast CA Son Mental health disorder Social History Housing: Condominium Are you a primary career development specialist to a significant other at home: No Do you presently have visiting nurse or other home services: No Alcohol intake: current Alcohol intake frequency: holidays/special occasions only Patient Tobacco Use Status: Former Tobacco user Tobacco use type: Cigarette Years Smoked: onset 26yo, 1ppd x 27yrs, now 1-2cig/day - 20+PYH e-Cigarette/Vaping Use: Never Used Second Hand Smoke Exposure: No Substance Use Type: Marijuana Current occupational status: employed Current occupation: [employer]/ right hand dominant Sexual orientation: Straight/Heterosexual Gender identity: Female Cognitive needs: No Hearing needs: No Vision needs: No Female Reproductive History Menstrual Age of Menarche: 15 Review of Systems Const All systems reviewed & are unremarkable except as noted in HPI and below Physical Exam Vital Signs: Last Vital Signs Temp 98.2 F 08/22/25 07:57 Pulse 73 08/22/25 07:57 BP 112/70 08/22/25 07:57 Pulse Ox 98 08/22/25 07:57 Oxygen Delivery Method Room Air 08/22/25 07:57 BMI result Body Mass Index 24.7 Const General: no acute distress Nutritional Appearance: well nourished Orientation/consciousness: patient oriented x3 Neuro General: patient oriented x3, gait normal and moves all extremities Extrem Right upper extremity: normal to inspection and full ROM Left upper extremity: hand Details: normal to inspection, normal capillary refill, tenderness Location: of the dorsal hand and of the thumb, normal ROM of fingers (ROM of Wrist Limited due to pain.) and no swelling; no unusual warmth and no crepitus Psych Speech and movement: Normal speech and movement present Assessment & Plan Assessment & Plan (1) Wrist pain, left: Code(s): M25.532 - Pain in left wrist Plan: Referral placed to Orthopedics as requested. Ordered Rx for Naproxen Wrapped Hand/wrist with Aaron bandage. (2) Low back pain: Code(s): M54.50 - Low back pain, unspecified Qualifiers: Back pain laterality: midline Chronicity: chronic Sciatica presence: without sciatica Qualified Code(s): M54.50 - Low back pain, unspecified; G89.29 - Other chronic pain Plan: Ordered Naproxen for pain relief. Orders: Referrals Orthopedics Referral G89.29 - Other chronic pain, M25.532 - Pain in left wrist, M54.50 - Low back pain, unspecified Medications: New naproxen 500 mg PO BID 30 tabs 0RF G89.29 - Other chronic pain, M25.532 - Pain in left wrist, M54.50 - Low back pain, unspecified Coding Level of Care Code Est Pt Level 4 (88487) Diagnoses Wrist pain, left M25.532 Chronic midline low back pain without sciatica M54.50; G89.29 Back pain laterality: midline Chronicity: chronic Sciatica presence: without sciatica Time Spent (min) 20
[2025-08-22 07:57] VITALS: BP 112/70; PULSE 73; TEMP 36.8; O2SAT 98; BMI 24.7
== END 2025-08-22 08:18 | disposition home or self-care (01) ==
PROVIDERS: PCP Nurse Practitioner Family; Visit Provider Nurse Practitioner Family
DX: M25.532 Pain in left wrist (principal); M54.50 Low back pain, unspecified; G89.29 Other chronic pain

== ENCOUNTER → 2025-08-22 07:55 | Outpatient (BNVA) | payer OTHER, SELFPAY | PROVIDERS: PCP Nurse Practitioner Family; Visit Provider Nurse Practitioner Family | DX: M25.532 Pain in left wrist (principal); M54.50 Low back pain, unspecified; G89.29 Other chronic pain | CPT/HCPCS: 99212 ==

== ENCOUNTER 2025-09-18 07:34 | Outpatient (REF) | payer OTHER, SELFPAY ==
--- NOTE | ~2025-09-18 | XR_ITS ---
EXAMINATION: XR WRIST, LEFT CLINICAL INFORMATION: M25.532 - Pain in left wrist COMPARISON: None available. TECHNIQUE: PA, lateral, and oblique views of the left wrist. FINDINGS: There is no joint diastases. There are no degenerative changes. No fracture line is identified. There are no erosions. XR/XR wrist LT w scaphoid IMPRESSION: Unremarkable left wrist. Electronically signed by: Robert Post MD 09/18/2025 01:04 PM JOHN PAUL BASS
== END 2025-09-18 07:35 | disposition home or self-care (01) ==
LOC: HO.HOSX 07:34
PROVIDERS: Visit Provider Orthopaedic Surgery
DX: M65.4 Radial styloid tenosynovitis [de Quervain] (principal)
CPT/HCPCS: 20550; 73110; 99212; J1100; J2003

== ENCOUNTER 2025-09-18 12:42 | Outpatient (AMB) | payer OTHER, SELFPAY ==
[2025-09-18 13:02] VITALS: BMI 23.9
--- NOTE | 2025-09-18 13:02 | MHC.OFFVIS ---
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 States pain started about 2 months ago and has worsen since. Patient states pain on the thumb side of the wrist below the thumb. Also states she has ganglion cyst that has decreased in size. Her wrist pain is worse when she is driving and turning of the wheel. States her pain is dull and she has weakness. Patient has tried using a brace in the past with very little relief and has had no improvement. Denies numbness or tingling in finger tips. Hx of right trigger release done with Dr Lopez in 2020- resolved. Allergies Seasonal Allergies Allergy (Mild, Verified 09/18/25 13:06) Unknown HPI HPI Newprob-Pain in left wrist: Details: Xi is a 54 year old right hand dominant woman who presents with complaints of left radial sided wrist pain. Symptoms worse with pinching & gripping activities. Her pain has been present for ~2 months now. 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 She also complains of weakness in her hand, but denies any numbness. She also thinks she has a ganglion cyst on her wrist She works as a [employer] near the [employer] and says this is difficult due to her pain. No numbness or tingling [facility] Medical History Low back pain Wrist pain, left HIV (human immunodeficiency virus infection) Dyslipidemia Nicotine dependence, cigarettes, uncomplicated Warts, genital JANA II (cervical intraepithelial neoplasia II) (~2020) History of abnormal cervical Pap smear Trigger thumb, right thumb Surgical History History of bunionectomy of right great toe History of thumb surgery History of loop electrical excision procedure (LEEP) Family History Mother Breast CA Son Mental health disorder Social History Housing: Condominium Are you a primary personal care aide to a significant other at home: No Do you presently have visiting nurse or other home services: No Alcohol intake: current Alcohol intake frequency: holidays/special occasions only Patient Tobacco Use Status: Former Tobacco user Tobacco use type: Cigarette Years Smoked: onset 26yo, 1ppd x 27yrs, now 1-2cig/day - 20+PYH e-Cigarette/Vaping Use: Never Used Second Hand Smoke Exposure: No Substance Use Type: Marijuana Current occupational status: employed Current occupation: [employer]/ right hand dominant Sexual orientation: Straight/Heterosexual Gender identity: Female Cognitive needs: No Hearing needs: No Vision needs: No Female Reproductive History Menstrual Age of Menarche: 15 Review of Systems Const All systems reviewed & are unremarkable except as noted in HPI and below Physical Exam Vital Signs: BMI result Body Mass Index 23.9 Const General: cooperative, healthy appearing and no acute distress Orientation/consciousness: patient oriented x3 HEENT Head: Yes normocephalic and Yes atraumatic Eyes EOM: EOMs intact bilaterally Resp Effort & Inspection: normal respiratory effort and able to speak in complete sentences Cardio Jugular venous distension: no JVD Skin General skin exam: turgor normal Rashes: no rashes Neuro General: patient oriented x3 Extrem Other: Evaluation of Left Upper Extremity: The patient is alert, oriented, and in no acute distress Neuro: Median, Ulnar, Radial nerves motor and sensory intact and sensation is normal to the tips of all digits Vascular: Cap refill brisk ROM: She can make a fist and extend all her digits No locking or catching Skin: No lacerations or abrasions. General: No Ecchymosis. No Erythema or evidence of infection. Most tender over the 1st dorsal compartment Positive Luz test on the left No tenderness over the basal joint, MCP joint, or a1 juany Radiographs: 3 views of the left wrist were taken and viewed by me today in clinic. They show no factures, dislocations, or arthritic changes. Psych Appearance: grossly normal Affect: normal affect Attitude: cooperative Office Procedures AMB Fracture Care Details: No fracture, injection Fracture Billing Code: Fracture Billing Code Assessment & Plan Assessment & Plan (1) De Quervain's tenosynovitis, left: Code(s): M65.4 - Radial styloid tenosynovitis [de Quervain] Category: Medical Plan Assessment & Plan: 1. Left De Quervain's Tenosynovitis I educated her about this condition I discussed operative and non-operative treatment options The patient would like to proceed with an injection I discussed activity modification, they should limit or avoid any heavy or repetitive pinching or gripping activities She was fitted for a comfort cool brace to wear with daily activity She should work on ROM exercises, and avoid any gripping or strengthening activities I discussed the use of assistive devices for daily activity Injection #1: The risks and benefits of a steroid injection including but not limited to risk of damage to blood vessels, nerves, tendons, infection, skin bleaching, failure to improve symptoms, increased pain, and possible need for further injections or other intervention were discussed with the patient and the patient wishes to proceed with the steroid injection. Once consent was obtained, I sterilely prepped the area over the 1st dorsal compartment of the Left thumb. I then injected the 1st dorsal compartment with a combination of 1 mL of dexamethasone (4mg/ml), and 1% lidocaine. The patient tolerated the procedure well with no complications and good resolution of their symptoms prior to leaving clinic. If the patient continues to have pain 6-8 weeks following this injection, they may call to schedule appointment to discuss alternative treatment options She will follow up prn Scribed for Maribeth Lopez MD by Rm Fitzpatrick, medical billing coder, on 09/18/25 at 1:15 PM, EST. Orders: Orders XR wrist LT w scaphoid Today M25.532 - Pain in left wrist Coding Level of Care Code Est Pt Level 3 (62736) Diagnoses De Quervain's tenosynovitis, left M65.4 CPT Codes Fracture Care - Fracture Billing Code: Fracture Billing Code ([id number])
== END 2025-09-18 13:31 | disposition home or self-care (01) ==
LOC: HO.HOS 12:42
PROVIDERS: PCP Nurse Practitioner Family; Visit Provider Orthopaedic Surgery
DX: M65.4 Radial styloid tenosynovitis [de Quervain] (principal); M25.532 Pain in left wrist
CPT/HCPCS: 20550; 99213

== ENCOUNTER → 2025-09-18 12:45 | Outpatient (BNV) | payer OTHER, SELFPAY | PROVIDERS: Visit Provider Radiology Diagnostic Radiology | DX: M25.532 Pain in left wrist (principal) | CPT/HCPCS: 73110 ==